=== PATIENT | male | born 1985 | race Caucasian/White ===

== ENCOUNTER 2020-01-18 11:25 | Emergency (ER) | payer OTHER ==
[~2020-01-18] VITALS: Ht 167.6 cm; Wt 86.2 kg
--- OUTSIDE RECORDS SUMMARY | ~2020-01-18 | XMS | Encounter Summary ---
Demographics + + + | Address | [address] | | | [place] [address] | + + + | Home Phone | | + + + | Preferred Language | Unknown | + + + | Marital Status | Single | + + + | Yarsani Affiliation | CHR | + + + | Race | White | + + + | Ethnic Group | Not or | + + + Author + + + | Author | [facility] | + + + | Organization | [facility] | + + + | Address | Unknown | + + + | Phone | Unavailable | + + + Support + + +---------+ + | Name | Relationship | Address | Phone | + + +---------+ + | Rosa Ybarra | ECON | Unknown | | + + +---------+ + | Lexy Grimm | ECON | Unknown | | + + +---------+ + Care Team Providers + +------+ + | Care Assistant Professor Of Biochemistry Name | Role | Phone | + +------+ + PCP | Unavailable | + +------+ + Encounter Details +--------+ + + + + | Date | Type | Department | Care Team | Description | +--------+ + + + + | 09/26/ | Abstract | Neurology at | Kenneth Ruiz MD | | | 2012 | | [facility] & | | | | | | Healing [address] | | | | | | [facility] [place] [facility] | | | | | | Health and Healing, | | | | | | Building | | | | | | Floor [place], [place] | | | | | | [address] | | | | | | [phone] | | | +--------+ + + + + Social History + +-------+ +--------+------+ | Tobacco Use | Types | Packs/Day | Years | Date | | | | | Used | | + +-------+ +--------+------+ | Never Assessed | | | | | + +-------+ +--------+------+ + + + | Sex Assigned at | Date Recorded | | | | + + + | Not on file | | + + + documented as of this encounter Plan of Treatment Not on filedocumented as of this encounter Visit Diagnoses Not on filedocumented in this encounter"
--- OUTSIDE RECORDS SUMMARY | ~2020-01-18 | XMS | Encounter Summary ---
Demographics + + + | Address | [address] | | | [place] [address] | + + + | Home Phone | | + + + | Preferred Language | Unknown | + + + | Marital Status | Single | + + + | Jainism Affiliation | CHR | + + + | Race | White | + + + | Ethnic Group | Not or | + + + Author + + + | Author | [facility] | + + + | Organization | [facility] | + + + | Address [...] Team Providers + +------+ + | Care Air Conditioning Mechanic Name | Role | Phone | + +------+ + | Collin Rivera NP | PCP | | + +------+ + Encounter Details +--------+ + + + + | Date | Type | Department | Care Team | Description | +--------+ + + + + | 10/12/ | Document-Sc | UNKNOWN DEPARTMENT | Unknown . | | | 2015 | anned | [address] | | | | | | [address] | | | | | | [place], [place] | | | | | | [address] | | | +--------+ + + + [...] Not on filedocumented as of this encounter Procedures + +--------+ + + + | Procedure Name | Priori | Date/Time | Associated Diagnosis | Comments | | | ty | | | | + +--------+ + + + | RADIOLOGY | | 10/12/2014 | | Results for this | | | | 12:00 AM | | procedure are in the | | | | PDT | | results section. | + +--------+ + + + documented in this encounter Results RADIOLOGY (10/12/2014 12:00 AM PDT) + + + | Narrative | Performed At | + + + | | | + + + documented in this encounter Visit Diagnoses Not on filedocumented in this encounter"
--- OUTSIDE RECORDS SUMMARY | ~2020-01-18 | XMS | Encounter Summary ---
Demographics + + + | Address | [address] | | | [place] [address] | + + + | Home Phone | | + + + | Preferred Language | Unknown | + + + | Marital Status | Single | + + + | Samaritan Affiliation | CHR | + + + | Race | White | + + + | Ethnic Group | Not or | + + + Author + + + | Author | [facility] | + + + | Organization | [facility] | + + + | Address [...] Team Providers + +------+ + | Care Discharge Specialist Name | Role | Phone | + +------+ + | Collin Rivera NP | PCP | | + +------+ + Encounter Details +--------+ + + + + | Date | Type | Department | Care Team | Description | +--------+ + + + + | 09/04/ | Abstract | Neurology at | Clinic, Neurology | | | 2014 | | [facility] & | | | | | | Healing [address] | | | | | | [facility] [place] [facility] | | | | | | Health and Healing, | | | | | | Building | | | | | | Floor [place], [place] | | | | | | [address] | | | | | | [phone] | | | +--------+ + + + [...]
--- OUTSIDE RECORDS SUMMARY | ~2020-01-18 | XMS | Encounter Summary ---
Demographics + + + | Address | [address] | | | [place] [address] | + + + | Home Phone | | + + + | Preferred Language | Unknown | + + + | Marital Status | Single | + + + | Restorationist Affiliation | CHR | + + + | Race | White | + + + | Ethnic Group | Not or | + + + Author + + + | Author | [facility] | + + + | Organization | [facility] | + + + | Address | [...] Team Providers + +------+ + | Care Fagoting Machine Operator Name | Role | Phone | + [...] [address] | | | | | | [place], [place] | | | | | | [address] | | | +--------+ + + + [...]
--- OUTSIDE RECORDS SUMMARY | ~2020-01-18 | XMS | Encounter Summary ---
Demographics + + + | Address | [address] | | | [place] [address] | + + + | Home Phone | | + + + | Preferred Language | Unknown | + + + | Marital Status | Single | + + + | Episcopal Affiliation | CHR | + + + | Race | White | + + + | Ethnic Group | Not or | + + + Author + + + | Author | [facility] | + + + | Organization | [facility] | + + + | Address [...] Team Providers + +------+ + | Care Match Marker Name | Role | Phone | + +------+ + | Collin Rivera NP | PCP | | + +------+ + Reason for Visit + +--------+ + | Reason | Onset | Comments | | | Date | | + +--------+ + | Headache | 12/31/ | | | | 2014 | | + +--------+ + Encounter Details +--------+ + + + + | Date | Type | Department | Care Team | Description | +--------+ + + + + | 12/31/ | Telephone | [facility] | Marlo Ruiz MD | Headache | | 2015 | | Interventional | [address] | | | | | [place] [facility] | [address] Vel[address] [place], | | | | | [address] | [place] [address] | | | | | [address] [facility] | [phone] | | | | | [facility], | | | | | | [place] [address] | | | | | | [phone] | | | +--------+ + + + [...] + + documented as of this encounter Miscellaneous Notes Telephone Encounter - Marlo Ruiz MD - 12/31/2014 12:11 PM PDTCalled PCP Collin Rivera NP concerning referral for brain atrophy and Headaches. I also discussed the biopsy results. The patient has seen Maurice Cotton a ENT surgeon. I have forwarded the referral to Dr Tobin Schneider and he will follow-up with him. documented in this encounter Plan of Treatment Not on filedocumented as of this encounter Visit Diagnoses Not on filedocumented in this encounter"
--- OUTSIDE RECORDS SUMMARY | ~2020-01-18 | XMS | Encounter Summary ---
Demographics + + + | Address | [address] | | | [place] [address] | + + + | Home Phone | | + + + | Preferred Language | Unknown | + + + | Marital Status | Single | + + + | Bahai Affiliation | CHR | + + + | Race | White | + + + | Ethnic Group | Not or | + + + Author + + + | Author | [facility] [facility] | + + + | Organization | [facility] | + + + | Address | [...] Team Providers + +------+ + | Care Publicity Writer Name | Role | Phone | + +------+ + | Collin Rivera NP | PCP | | + +------+ + Encounter Details +--------+ + + + + | Date | Type | Department | Care Team | Description | +--------+ + + + + | 12/08/ | Document-Sc | UNKNOWN DEPARTMENT | Unknown . | | | 2015 | anned | [address] | | | | | | [address] | | | | | | [place], [place] | | | | | | [address] | | | +--------+ + + + [...]
--- OUTSIDE RECORDS SUMMARY | ~2020-01-18 | XMS | Encounter Summary ---
Demographics + + + | Address | [address] | | | [place] [address] | + + + | Home Phone | | + + + | Preferred Language | Unknown | + + + | Marital Status | Single | + + + | Taoist Affiliation | CHR | + + + | Race | White | + + + | Ethnic Group | Not or | + + + Author + + + | Author | [facility] | + + + | Organization | [facility] | + + + | Address [...] Team Providers + +------+ + | Care Lactation Consultant Name | Role | Phone | + +------+ + | Collin Rivera NP | PCP | | + +------+ + Encounter Details +--------+ + + + + | Date | Type | Department | Care Team | Description | +--------+ + + + + | 02/15/ | Document-Sc | UNKNOWN DEPARTMENT | Unknown . | | | 2013 | anned | [address] | | | | | | [address] | | | | | | [place], [place] | | | | | | [address] | | | +--------+ + + + [...] + + + | RADIOLOGY | | 02/15/2014 | | Results for this | | | | 12:00 AM | | procedure are in the | | | | PDT | | results section. | + +--------+ + + + documented in this encounter Results RADIOLOGY (02/15/2014 12:00 AM PDT) + + + | Narrative | Performed At | + + + | | | + + + documented in this encounter Visit Diagnoses Not on filedocumented in this encounter"
--- OUTSIDE RECORDS SUMMARY | ~2020-01-18 | XMS | Encounter Summary ---
Demographics + + + | Address | [address] | | | [place] [address] | + + + | Home Phone | | + + + | Preferred Language | Unknown | + + + | Marital Status | Single | + + + | Scientologist Affiliation | CHR | + + + | Race | White | + + + | Ethnic Group | Not or | + + + Author + + + | Author | [facility] | + + + | Organization | [facility] | + + + | Address [...] Team Providers + +------+ + | Care Internet Sales Director Name | Role | Phone | + +------+ + | Collin Rivera NP | PCP | | + +------+ + Encounter Details +--------+ + + + + | Date | Type | Department | Care Team | Description | +--------+ + + + + | 08/26/ | Document-Sc | UNKNOWN DEPARTMENT | Unknown . | | | 2015 | anned | [address] | | | | | | [address] | | | | | | [place], [place] | | | | | | [address] | | | +--------+ + + + [...] + + + | RADIOLOGY | | 08/26/2014 | | Results for this | | | | 12:00 AM | | procedure are in the | | | | PDT | | results section. | + +--------+ + + + documented in this encounter Results RADIOLOGY (08/26/2014 12:00 AM PDT) + + + | Narrative | Performed At | + + + | | | + + + documented in this encounter Visit Diagnoses Not on filedocumented in this encounter"
--- OUTSIDE RECORDS SUMMARY | ~2020-01-18 | XMS | Encounter Summary ---
Demographics + + + | Address | [address] | | | [place] [address] | + + + | Home Phone | | + + + | Preferred Language | Unknown | + + + | Marital Status | Single | + + + | Hinduism Affiliation | CHR | + + + | Race | White | + + + | Ethnic Group | Not or | + + + Author + + + | Author | [facility] [facility] | + + + | Organization | [facility] | + + + | Address | [...] Team Providers + +------+ + | Care Operations And Maintenance Supervisor Name | Role | Phone | + +------+ + | Collin Rivera NP | PCP | | + +------+ + Encounter Details +--------+ + + + + | Date | Type | Department | Care Team | Description | +--------+ + + + + | 11/09/ | Document-Sc | UNKNOWN DEPARTMENT | Unknown . | | | 2016 | anned | [address] | | | | | | [address] | | | | | | [place], [place] | | | | | | [address] | | | +--------+ + + + [...] + + + | RADIOLOGY | | 11/10/2015 | | Results for this | | | | 12:00 AM | | procedure are in the | | | | PDT | | results section. | + +--------+ + + + documented in this encounter Results RADIOLOGY (11/10/2015 12:00 AM PDT) + + + | Narrative | Performed At | + + + | | | + + + documented in this encounter Visit Diagnoses Not on filedocumented in this encounter"
--- OUTSIDE RECORDS SUMMARY | ~2020-01-18 | XMS | Encounter Summary ---
Demographics + + + | Address | [address] | | | [place] [address] | + + + | Home Phone | | + + + | Preferred Language | Unknown | + + + | Marital Status | Single | + + + | Sabianism Affiliation | CHR | + + + | Race | White | + + + | Ethnic Group | Not or | + + + Author + + + | Author | [facility] | + + + | Organization | [facility] | + + + | Address | [...] Team Providers + +------+ + | Care Associate Professor Of Biology Name | Role | Phone | + +------+ + | Collin Rivera NP | PCP | | + +------+ + Reason for Visit AUTH/CERT +--------+--------+ + + + + | Status | Reason | Specialty | Diagnoses / | Referred By | Referred To | | | | | Procedures | Contact | Contact | +--------+--------+ + + + + | Closed | | | | | | +--------+--------+ + + + + Encounter Details +--------+ + + + + | Date | Type | Department | Care Team | Description | +--------+ + + + + | 12/23/ | Hospital | [address] | Marlo Ching MD | | | 2014 | Encounter | [facility] | [address] | | | | | [address] [place] [address] | Ivon Velázquez [place], | | | | | [place], [place] | [place] [address] | | | | | [address] | [phone] | | | | | [phone] | | | +--------+ + + + [...] + + documented as of this encounter Last Filed Vital Signs + + + + + | Vital Sign | Reading | Time Taken | Comments | + + + + + | Blood Pressure | 127/82 | 12/23/2014 2:15 PM | | | | | PDT | | + + + + + | Pulse | 101 | 12/23/2014 2:15 PM | | | | | PDT | | + + + + + | Temperature | 36.8 C (98.2 F) | 12/23/2014 10:22 AM | | | | | PDT | | + + + + + | Respiratory Rate | 19 | 12/23/2014 2:15 PM | | | | | PDT | | + + + + + | Oxygen Saturation | 96% | 12/23/2014 2:15 PM | | | | | PDT | | + + + + + | Inhaled Oxygen | - | - | | | Concentration | | | | + + + + + | Weight | 74.8 kg (165 lb) | 12/23/2014 10:22 AM | | | | | PDT | | + + + + + | Height | 170.2 cm (5' 7") | 12/23/2014 10:22 AM | | | | | PDT | | + + + + + | Body Mass Index | 25.84 | 12/23/2014 10:22 AM | | | | | PDT | | + + + + + documented in this encounter Discharge Instructions Instructions Arlene Arvizu RN - 12/23/2014[facility] Follow the guidelines below. Call your doctor if you notice any unusual symptoms. Remember you are under the influence of drugs. Do not drive, drink alcoholic beverages, sign legal do cuments or make major decisions during the next 24 hours. Wound Care: -Keep wound dry and clean Dressings: -Keep the dressing on your wound dry -You may remove the dressing in 1 day. - Change the dressing as needed for any oozing. Call Your Doctor If If you see any of these signs, call your doctor right away. -Increase redness -Pus -Swelling -Red streaks -Hardness or firmness -Foul odor -Fever above 101 F -Tenderness -Increased bleeding -Increased pain not relieved by medicine Diet and Medicines: Eat your normal diet and take your usual medicines unless told otherwise by your doctor. How to Reach your Doctor Monday 8:00 4:00 call Neuro Interventional Radiology at . For Interventional Radiology related emergencies after hours, weekends, and holidays, call the Hospital Distributor Operator at and ask to have the Neuro Radiology Fellow onlinda thompson. If you are going to the [facility] Emergency Room, call to let them know you are neeraj dc. documented in this encounter Medications at Time of Discharge + + + +---------+ + + | Medication | Sig | Dispensed | Refills | Start | End Date | | | | | | Date | | + + + +---------+ + + | citalopram 10 mg | Take 10 mg by mouth | | 0 | | | | Oral tablet | once daily. | | | | | + + + +---------+ + + | gabapentin 300 mg | Take 300 mg by mouth | | 0 | | | | oral capsule | three times daily. | | | | | + + + +---------+ + + | | Take 1-2 tablets by | 5 | 0 | 12/24/19 | | | HYDROcodone-acetamin | mouth every four | tablet | | 15 | | | ophen (NORCO) 5-325 | hours as needed. Not | | | | | | mg oral tablet | to exceed 3250 mg | | | | | | | of acetaminophen | | | | | | | from all products | | | | | | | per 24 hour period. | | | | | + + + +---------+ + + | omeprazole 40 mg | Take 1 Cap by mouth | 30 Cap | 0 | 10/01/19 | | | Oral capsule,delayed | once daily. | | | 13 | | | release(/EC) | | | | | | + + + +---------+ + + | promethazine 12.5 | Take 12.5 mg by | | 0 | | | | mg oral tablet | mouth four times | | | | | | | daily as needed for | | | | | | | nausea/vomiting. | | | | | + + + +---------+ + + | SUMAtriptan 25 mg | Take 25 mg by mouth | | 0 | | | | Oral tablet | as needed. | | | | | | | Administer with | | | | | | | fluids. A second | | | | | | | dose may be | | | | | | | administered in 2 | | | | | | | hours if a | | | | | | | satisfactory | | | | | | | response has not | | | | | | | been obtained. Max | | | | | | | dose: 200 mg/day. 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 Past Medical History Diagnosis Date Depressive disorder, not elsewhere classified No past surgical history on file. No Known Allergies Current Medication List Name Sig CITALOPRAM 10 MG TABLET Take 10 mg by mouth once daily. GABAPENTIN 300 MG CAPSULE Take 300 mg by mouth three times daily. OMEPRAZOLE 40 MG CAPSULE,DELAYED RELEASE Take 1 Cap by mouth once daily. PROMETHAZINE 12.5 MG TABLET Take 12.5 mg by mouth four times daily as needed for nausea/vom iting. SUMATRIPTAN 25 MG TABLET Take 25 mg by mouth as needed. Administer with fluids. A second do se may be administered in 2 hours if a satisfactory response has not been obtained. Max dos e: 200 mg/day. TAKING COUMADIN OR GLUCOPHAGE? No TAKING ASPIRIN AND PLAVIX ADEQUATE FOR INTERVENTION? No Lab Results Component Value Date NA 139 09/29/2012 K 3.4* 09/29/2012 CL 97.0 09/29/2012 BUN 24* 09/29/2012 CR 1.1 09/29/2012 GLU 112* 09/29/2012 Lab Results Component Value Date WBC 9.4 09/29/2012 HCT 46 09/29/2012 PLT 282 09/29/2012 No components found with this basename: inr FOCUSED PHYSICAL EXAMINATION: Alert and oriented, normal mentation, normal speech. Slight weakness of RUE and RLE (4+/5) likely due to migraine. Mild difficulty in the right fine finger movements due to pain, mild ly impaired visual card due to blurred vision, likely due to migraine. ASA SCORE: 2 1. Otherwise Healthy Person 2. Mild systemic disturbance due to general disease or surgical illness 3. Moderate systemic disturbance due to general disease or surgical illness 4. Severe systemic illness; incapacitating threat to life 5. Moribund; not expected to survive >24 hours with or without surgery PLANNED ACCESS POINT: RIGHT COMMON FEMORAL ARTERY CURRENT LEVEL OF PAIN: MODERATE PLANNED LEVEL OF SEDATION: MODERATE PRESENT P.O. STATUS: CLEAR LIQUID DIET The risk of biopsy were explained to patient or patient's surrogate in detail, including ri sks, benefits, alternatives, and indications. All questions were answered in detail. The pat ient or the patient's surrogate directs us to proceed. Consent was signed and placed in shivam t. documented in thi s encounter Procedure Notes Jay Carolina MD - 12/23/2014 12:37 PM PDTAssociated Order(s): PROCEDURE NOTEFormatti ng of this note might be different from the original. INTERVENTIONAL NEURORADIOLOGY Brief Procedure Note Attending Physician: Marlo Ching MD Assistants: 1. Jay Carolina MD Procedure Performed: X-per CT guided left parapharyngeal tumor biopsy Complications: None apparent except persistent migraine related symptoms. Findings: Successful X-per CT guided left parapharyngeal tumor biopsy. Specimen was put i nto 10% formalin and sent to pathology. Closure: 2 hrs observation MD JAY Baltazar MD documented in this encounter Miscellaneous Notes Scan - Marlo Ching MD - 12/23/2014 5:52 PM PDTI had seen Mac Ybarra in the [facility] for evaluation of his left deep facial mass. I was asked to consult this patient by Dr. Alvaro Saavedra and Collin Rivera N.P. This patient is a 28-year-old male with history of migraines and neck pain MRI and a CT scan which demonstrates a left deep facial mass. I reviewed the scans may demo nstrate an enhancing mass which appears stable in size between the 2 studies involving the p restyloid parapharyngeal space. Given its location I feel that I could obtain a needle biops y via the stylomandibular canal approach and he underwent CT guidance for this today. The ne edle placement was confirmed to be within the lesion. We were able to obtain a 1 cm core that was placed in formalin and sent to the surgical pat hologist for analysis. Patient had modest neck pain in the region of the biopsy site was otherwise doing fine and was discharged. I have spent a total of 20 minutes in this consult concerning the potential CT biopsy and expected results and coordination of care. MARLO CHING MD [facility] [address] [facility] [address] [place], [place] [id number] documented in this encou nter Plan of Treatment + +------+--------+ + + | Name | Type | Priori | Associated Diagnoses | Order Schedule | | | | ty | | | + +------+--------+ + + | SURGICAL PATHOLOGY | Lab | Routin | | Collect Now for 1 | | | | e | | Occurrences starting | | | | | | 12/23/2014 until | | | | | | 12/23/2014 | + +------+--------+ + + documented as of this encounter Procedures + +--------+ + + + | Procedure Name | Priori | Date/Time | Associated Diagnosis | Comments | | | ty | | | | + +--------+ + + + | PROCEDURE NOTE | Routin | 07/02/2015 | | Results for this | | | e | 1:13 PM | | procedure are in the | | | | PST | | results section. | + +--------+ + + + | PROCEDURE NOTE | Routin | 07/02/2015 | | Results for this | | | e | 1:10 PM | | procedure are in the | | | | PST | | results section. | + +--------+ + + + | CEREBRAL 3 VESSELS | Routin | 12/23/2014 | | Results for this | | | e | 12:15 PM | | procedure are in the | | | | PDT | | results section. | + +--------+ + + + | SURGICAL PATHOLOGY | Routin | 12/23/2014 | | Results for this | | | e | | | procedure are in the | | | | | | results section. 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 [id number] | | | | | | 1-cm throw core biopsy | | | | | | needle was advanced | | | | | | into this lesion. CT | | | | | | scan following firing of | | | | | | the needle demonstrated | | | | | | the needle to lie in | | | | | | thesuperior mid aspect | | | | | | of the mass. A 10 | | | | | | millimeter core was | | | | | | obtained and placedin | | | | | | formalin to be sent to | | | | | | surgical pathology for | | | | | | analysis. The | | | | | | patienttolerated | | | | | | procedure well no | | | | | | apparent palpitations | | | | | | Impression: CT guided | | | | | | percutaneous puncture | | | | | | and core biopsy was | | | | | | performed withCT | | | | | | confirmation of needle | | | | | | location within the | | | | | | mass. Operative report: | | | | | | Surgeon: Marlo Ching, | | | | | | M.D. Returns Clerk surgeon: | | | | | | Jay Carolina, | | | | | | M.D. Anesthesia: | | | | | | Conscious sedation was | | | | | | maintained throughout | | | | | | the procedure withthe | | | | | | monitoring nurse | | | | | | present. Duration of | | | | | | procedure: Began at | | | | | | 1130 , terminated at | | | | | | 1215 , fluoro time | | | | | | 3.3minutes. Operation | | | | | | No. 1: CT guidance of | | | | | | 18-gauge 1-cm throw | | | | | | core biopsy needle | | | | | | intothe left | | | | | | parapharyngeal | | | | | | massOperation No. 2: | | | | | | biopsy left base of | | | | | | tongue mass Description | | | | | | of procedure: The | | | | | | patient was taken to the | | | | | | neuroangiography suite | | | | | | and ankit supine on | | | | | | thetable. Using Xper | | | | | | CT and Xper guide a | | | | | | 18-gauge 1-cm throw core | | | | | | biopsy needle,a 10mm | | | | | | core biopsy specimen was | | | | | | obtained as described | | | | | | above. Dr Ching | | | | | | waspresent and | | | | | | participated in the | | | | | | procedure as listed | | | | | | above. Suggested CPT | | | | | | codes: 43135i7, 52890q0 | | | | | | Attending | | | | | | Radiologists: MARLO | | | | | | STEFANIE CHINGuthor: MARLO | | | | | | MD JEANE I have | | | | | | personally viewed this | | | | | | procedure/exam, reviewed | | | | | | this report, and | | | | | | madechanges to it where | | | | | | appropriate. | | | | | | Final/Electronically | | | | | | signed / MARLO CHING | | | | | | 12/23/2014 18:26 PM | | | | + + + + + + + + | Specimen | + + | | + + + +---------+ + + | Performing | Address | City/State/Zipcode | Phone Number | | Organization | | | | + +---------+ + + | [place] [facility] | | | | | RADIOLOGY | | | | + +---------+ + + SURGICAL PATHOLOGY (12/23/2014) + + + + + + | Component | Value | Ref Range | Performed | Pathologist | | | | | At | Signature | + + + + + + | SURGICAL | SOURCE OF SPECIMEN:A | | [facility] | | | PATHOLOGY | Left parapharyngeal mass | | DEPARTMENT | | | | Final Pathologic | | OF | | | | Diagnosis:A: Left | | PATHOLOGY | | | | parapharyngeal mass, | | | | | | biopsy: - 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 | | | | | | This fragment doesnot | | | | | | contain cytologic atypia | | | | | | however it is only a | | | | | | small representation | | | | | | ofthe lesion. Clinical | | | | | | correlation is required | | | | | | Case Seen | | | | | | By:Sawyer Russell | | | | | | M.D./Surgical pathology | | | | | | Richard Nevarez | | | | | | M.DDarren/PathologistT: | | | | | | 12/24/14:SB | | | | | | Clinical History:The | | | | | | patient is a 28-year-old | | | | | | male with left | | | | | | parapharyngeal mass, CT | | | | | | guidedbiopsy. | | | | | | Gross | | | | | | Description:Received is | | | | | | 1 specimen in formalin | | | | | | in a container labeled | | | | | | with the patientname | | | | | | (initials MH) and | | | | | | medical record number | | | | | | [id number]. Received is | | | | | | agray-white core of soft | | | | | | tissue measuring 0.6 cm | | | | | | in length x less than | | | | | | 0.1cm in diameter. Two | | | | | | additional hugo-white | | | | | | fragments of soft tissue | | | | | | eachmeasuring less than | | | | | | 0.1 cm in greatest | | | | | | dimension are also | | | | | | noted. Theentire | | | | | | specimen is filtered and | | | | | | submitted. | | | | | | Cassette Index:[id number] | | | | | | My electronic | | | | | | signature indicates that | | | | | | I have personally | | | | | | reviewed alldiagnostic | | | | | | slides, the gross and/or | | | | | | microscopic portion of | | | | | | thisreport and | | | | | | formulated the final | | | | | | diagnosis. | | | | | | Rendering Diagnostician: | | | | | | Aaron Nevarez | | | | | | NolbertoPathologistElectroni | | | | | | july Signed 2014 | | | | | | 11:45AM | | | | + + + + + + + + | Specimen | + + | | + + + + + + + | Performing | Address | City/State/Zipcode | Phone Number | | Organization | | | | + + + + + | [facility] | [address] | [place] [address] | | | PATHOLOGY | [address] | | | + + + + + documented in this encounter Visit Diagnoses Not on filedocumented in this encounter Administered Medications + +---------+ +--------+------+------+ | Medication Order | MAR | Action | Dose | Rate | Site | | | Action | Date | | | | + +---------+ +--------+------+------+ | fentaNYL citrate (PF) | Miki Cornejo | 12/24/19 | 25 mcg | | | | (SUBLIMAZE) injection 25-100 mcg | | 15 12:01 | | | | | 25-100 mcg, intravenous, | | PM PDT | | | | | INTRAPROCEDURE PRN, Starting Tue | | | | | | | 12/23/14 at 1007, Until Tue | | | | | | | 12/23/14 at 1225, sedation | | | | | | + +---------+ +--------+------+------+ +---------+ +--------+---+---+ | New Bag | 12/24/19 | 25 mcg | | | | | 15 11:47 | | | | | | AM PDT | | | | +---------+ +--------+---+---+ | New Bag | 12/24/19 | 50 mcg | | | | | 15 11:38 | | | | | | AM PDT | | | | +---------+ +--------+---+---+ +---+---+ | | | +---+---+ + +---------+ +--------+---+---+ | fentaNYL citrate (PF) | New Bag | 12/24/19 | 50 mcg | | | | (SUBLIMAZE) injection 25-50 mcg | | 15 1:13 | | | | | 25-50 mcg, intravenous, | | PM PDT | | | | | POSTPROCEDURE PRN, Starting Tu | | | | | | | 12/23/14 at 1237, Until Mon | | | | | | | 12/23/14 at 2025, moderate pain, | | | | | | | severe pain | | | | | | + +---------+ +--------+---+---+ + +---+ | | | + +---+ | fentaNYL citrate (PF) | | | (SUBLIMAZE) injection 1 dose, | | | Starting Mon12/23/14 at 1308, | | | Until Mon12/23/14 at 1313 | | + +---+ | | | + +---+ + +-------+ + +---+---+ | HYDROcodone-acetaminophen | Given | 12/24/19 | 1 tablet | | | | (NORCO) 5-325 mg tablet 1 tablet | | 15 2:03 | | | | | 1 tablet, oral, ONCE, 1 dose, | | PM PDT | | | | | 12/23/14 at 1400 | | | | | | + +-------+ + +---+---+ + +---+ | | | + +---+ | HYDROcodone-acetaminophen | | | (NORCO) 5-325 mg tablet 1 dose, | | | Starting 12/23/14 at 1401, | | | Until 12/23/14 at 1403 | | + +---+ | | | + +---+ + +---------+ +------+---+---+ | midazolam (VERSED) injection | New Bag | 12/24/19 | 1 mg | | | | 0.25-2 mg 0.25-2 mg, | | 15 11:38 | | | | | intravenous, INTRAPROCEDURE PRN, | | AM PDT | | | | | Starting 12/23/14 at 1007, | | | | | | | Until 12/23/14 at 1225, | | | | | | | sedation | | | | | | + +---------+ +------+---+---+ +---+---+ | | | +---+---+ documented in this encounter
--- OUTSIDE RECORDS SUMMARY | ~2020-01-18 | XMS | Encounter Summary ---
Demographics + + + | Address | [address] | | | [place] [address] | + + + | Home Phone | | + + + | Preferred Language | Unknown | + + + | Marital Status | Single | + + + | Taoism Affiliation | CHR | + + + | Race | White | + + + | Ethnic Group | Not or | + + + Author + + + | Author | [facility] | + + + | Organization | [facility] | + + + | [...] Team Providers + +------+ + | Care Automotive Internet Sales Consultant Name | Role | Phone | + +------+ + | Collin Rivera NP | PCP | | + +------+ + Encounter Details +--------+ + + + + | Date | Type | Department | Care Team | Description | +--------+ + + + + | 11/26/ | Document-Sc | UNKNOWN DEPARTMENT | Unknown . | | | 2016 | anned | [address] | | | | | | [address] | | | | | | [place], [place] | | | | | | [address] | | | +--------+ + + + [...] + + + | RADIOLOGY | | 11/27/2015 | | Results for this | | | | 12:00 AM | | procedure are in the | | | | PDT | | results section. | + +--------+ + + + documented in this encounter Results RADIOLOGY (11/27/2015 12:00 AM PDT) + + + | Narrative | Performed At | + + + | | | + + + documented in this encounter Visit Diagnoses Not on filedocumented in this encounter"
--- OUTSIDE RECORDS SUMMARY | ~2020-01-18 | XMS | Encounter Summary ---
Demographics + + + | Address | [address] | | | [place] [address] | + + + | Home Phone | | + + + | Preferred Language | Unknown | + + + | Marital Status | Single | + + + | Hindu Affiliation | CHR | + + + | Race | White | + + + | Ethnic Group | Not or | + + + Author + + + | Author | [facility] | + + + | Organization | [facility] | + + + | Address [...] Team Providers + +------+ + | Care Plumber And Tinner Name | Role | Phone | + +------+ + | Collin Rivera NP | PCP | | + +------+ + Encounter Details +--------+ + + + + | Date | Type | Department | Care Team | Description | +--------+ + + + + | 04/13/ | Abstract | Otolaryngology | Alvaro Saavedra, | | | 2015 | | Head and Neck | [address] [facility] | | | | | Surgery Services at | [facility] | | | | | [address] | [place], [place] | | | | | [address] | [address] | | | | | Physician's | [phone] | | | | | Pavilion, [facility] [facility] floor | | | | | | [place], [place] | | | | | | [address] | | | | | | [phone] | | | +--------+ + + + [...]
--- OUTSIDE RECORDS SUMMARY | ~2020-01-18 | XMS | Encounter Summary ---
Demographics + + + | Address | [address] | | | [place] [address] | + + + | Home Phone | | + + + | Preferred Language | Unknown | + + + | Marital Status | Single | + + + | Yazdanism Affiliation | CHR | + + + | Race | White | + + + | Ethnic Group | Not or | + + + Author + + + | Author | [facility] | + + + | Organization | [facility] | + + + | Address [...] Team Providers + +------+ + | Care High Pressure Boiler Operator Name | Role | Phone | + +------+ + | Collin Rivera NP | PCP | | + +------+ + Encounter Details +--------+ + + + + | Date | Type | Department | Care Team | Description | +--------+ + + + + | 09/05/ | Outside | Neurophysiology | Collin Rivera, | | | 2015 | Referral | EEG at [address] | | | | Order | [address] | [facility] | | | | | [facility] | CLINIC [address] | | | | | Center, [address] Floor | [place], [place] | | | | | [place], [place] | [address] | | | | | [address] | | | | | | [phone] | | | +--------+ + + + [...] | + +--------+ + + + | EEG ROUTINE | Routin | 09/05/2014 | | Results for this | | | e | | | procedure are in the | | | | | | results section. | + +--------+ + + + documented in this encounter Results EEG ROUTINE (09/05/2014) + + + | Narrative | Performed At | + + + | Patient Name: Mac Ybarra Date of : 1985 Medical | | | Record Number: [id number] Date of Test: 09/05/2014 Place of | | | Service: [facility] Department: EEG [facility] - [id number] ROUTINE | | | EEG History: 28 year old man with reported history of headaches | | | with nausea, vomiting, visual change. Notes also indicate "personal | | | history of seizures" Current Outpatient Prescriptions: citalopram | | | 10 mg Oral tablet, Take 10 mg by mouth once daily. omeprazole 40 mg | | | Oral capsule,delayed release(DR/EC), Take 1 Cap by mouth once daily. | | | SUMAtriptan 25 mg Oral tablet, Take 25 mg by mouth as needed. | | | Administer with fluids. A second dose may be administered in 2 hours | | | if a satisfactory response has not been obtained. Max dose: 200 | | | mg/day. No current facility-administered medications for this | | | visit. Interpretation: In the maximally alert state, there is a | | | reactive 9-10 Hz posterior dominant rhythm of low moderate amplitude, | | | poorly formed at times, with lower amplitude faster frequencies | | | present symmetrically in the anterior head regions. The patient | | | entered into the drowsy state, stage I, but not stage II of sleep, | | | with normal presence and distribution of sleep transients. No focal | | | slowing or epileptiform discharges were present. Hyperventilation | | | was performed for 3 minutes with diffuse slowing but no abnormal | | | responses. Photic stimulation produced no photoparoxysmal | | | discharges or other abnormal responses. Intermittent electrode | | | artifact was noted at multiple locations, including F7, T6, T5, T4, | | | O1, and most prominently at F3. EKG showed normal sinus rhythm | | | throughout the recording. Impression: This is a normal EEG awake | | | and in light sleep. Electronically signed on 09/05/2014 at 5:30 PM | | | CAMILO VILLAGOMEZ MD. Suggested Modifier: None Suggested CPT: 85586 - | | | EEG Routine Awake & Asleep Suggested Dx: 345.90- Epilepsy, | | | Unspecified | | + + + documented in this encounter Visit Diagnoses Not on filedocumented in this encounter
--- OUTSIDE RECORDS SUMMARY | ~2020-01-18 | XMS | Encounter Summary ---
Demographics + + + | Address | [address] | | | [place] [address] | + + + | Home Phone | | + + + | Preferred Language | Unknown | + + + | Marital Status | Single | + + + | Episcopalian Affiliation | CHR | + + + | Race | White | + + + | Ethnic Group | Not or | + + + Author + + + | Author | [facility] | + + + | Organization | [facility] | + + + | Address | [...] Team Providers + +------+ + | Care Zoning Administrator Name | Role | Phone | + [...] [address] | | | | | | [place], [place] | | | | | | [address] | | | +--------+ + + + [...]
--- OUTSIDE RECORDS SUMMARY | ~2020-01-18 | XMS | Encounter Summary ---
Demographics + + + | Address | [address] | | | [place] [address] | + + + | Home Phone | | + + + | Preferred Language | Unknown | + + + | Marital Status | Single | + + + | Rastafarian Affiliation | CHR | + + + | Race | White | + + + | Ethnic Group | Not or | + + + Author + + + | Author | [facility] | + + + | Organization | [facility] | + + + | Address | Unknown | + + + | Phone | Unavailable | + + + Support + + +---------+ + | Name | Relationship | Address | Phone | + + +---------+ + | Rosa Kaur | ECON | Unknown | | + + +---------+ + | Lexy Grimm | ECON | Unknown | | + + +---------+ + Care Team Providers + +------+ + | Care Landscape Foreman Name | Role | Phone | + +------+ + | Unknown | PCP | Unavailable | + +------+ + Reason for Referral Diagnostic Testing (Urgent) +--------+--------+ + + + + | Status | Reason | Specialty | Diagnoses / | Referred By | Referred To | | | | | Procedures | Contact | Contact | +--------+--------+ + + + + | Closed | | Radiology | Procedures | Jonas | Emir Ct Scan | | | | | CT ABDOMEN | John Paul Jones MD | [facility] [address] | | | | | & PELVIS W | [address] | [address] | | | | | IV CONTRAST | [address] | [place] [facility] | | | | | | Rd | [facility], | | | | | | [place], [place] | 10th Floor | | | | | | [address] | [place], [place] | | | | | | Phone: | [phone] | | | | | | [phone] | Phone: | | | | | | Fax: | [phone] | | | | | | [phone] | Fax: | | | | | | | [phone] | +--------+--------+ + + + + Diagnostic Testing (Urgent) +--------+--------+ + + + + | Status | Reason | Specialty | Diagnoses / | Referred By | Referred To | | | | | Procedures | Contact | Contact | +--------+--------+ + + + + | Closed | | Radiology | Procedures | Case, | Rad Ct Scan | | | | | CT HEAD WO | Kitty Jones MD | [facility] [address] | | | | | CONTRAST | [address] | [address] | | | | | | [place] | [place] [facility] | | | | | | [place] | [facility], | | | | | | [place], [place] | [facility] Floor | | | | | | [address] | [place], [place] | | | | | | Phone: | [phone] | | | | | | [phone] | Phone: | | | | | | Fax: | [phone] | | | | | | [phone] | Fax: | | | | | | | [phone] | +--------+--------+ + + + + Reason for Visit + + + | Reason | Comments | + + + | SZ - Seizure | | + + + AUTH/CERT +--------+--------+ + + + + | [...] | +--------+ + + + + | 09/29/ | Emergency | [facility] Emergency | Kitty Razo MD | | | 2012 - | | Department [address] | [address] | | | | | [address] | [place], | | | 09/30/ | | [facility] | [place] [address] | | | 2012 | | [place], [place] | [phone] | | | | | [address] | | | | | | [phone] | | | +--------+ + + + [...] + + + | Blood Pressure | 118/81 | 09/30/2012 12:23 AM | | | | | PDT | | + + + + + | Pulse | 70 | 09/30/2012 12:23 AM | | | | | PDT | | + + + + + | Temperature | 37 C (98.6 F) | 09/30/2012 12:23 AM | | | | | PDT | | + + + + + | Respiratory Rate | 18 | 09/30/2012 12:23 AM | | | | | PDT | | + + + + + | Oxygen Saturation | 100% | 09/30/2012 12:23 AM | | | | | PDT | | + + + + + | Inhaled Oxygen | - | - | | | Concentration | | | | + + + + + | Weight | 86.2 kg (190 lb) | 09/29/2012 3:10 PM | | | | | PDT | | + + + + + | Height | - | - | | + + + + + | Body Mass Index | - | - | | + + + + + documented in this encounter Discharge Instructions Instructions John Paul Mcdaniel MD - 09/30/2012 Thank you for allowing us to care for you here at [facility]'s Emergency Department. Please refer to the following discharge instructions related to the care you received today. - Take the omeprazole as prescribed daily. - Stop taking the Naproxen - Use acetaminophen (Tylenol) unless you have been instructed otherwise by a doctor. Please follow the instructions on the packages. You should not take more than 4g of acetaminophen in any 24 hour period and no more than 1g per dose. Keep in mind that some prescription pain medications, including Vicodin, contain acetaminophen and this must be factored into the [facility] daily allowances. - Return to the Emergency Department if you are having any, or any other symptoms of concer n. Thank you. John Paul Mcdaniel MD documented in this encounter Medications at Time [...] mouth | 30 Cap | 0 | 05/05/20 | | | Oral capsule,delayed | once daily. | | | 13 | | | release(DR/EC) | | | | | | + [...] + + documented as of this encounter Procedure Notes Jessy Sotelo - 10/02/2012 6:16 PM PDTAssociated Order(s): CARDIOLOGYElectronically jailyn d by Faculty Deepak at 10/02/2012 6:16 PM PDTdocumented in this encounter ED Notes Gwen Anders RN - 09/30/2012 12:24 AM PDTRN DISCHARGE NOTE: The patient verbalizes understanding of written discharge/home care instructions as a evide nced by Follow-up plan of care reviewed w/ patient, Pt voiced understanding of plan of care, Written dx instructions reviewed w/ patient, Extended patient education and Patient advised not to drive. The patient was discharged Ambulatory via Walking and Private Vehicle with f rolly in no emergent distress. 12:[address] RN - 09/29/2012 8:46 PM PDTPt reports that he has been having g se izures since age 13 and has never been on anticonvulsants but would like to see a neurologis t to get started on some. Pt is now walking in [place] on the cell phone telling someone that angel rider will be ready to picker and packer at 1100 pm. Pt is to be prepped for and LP. Pt reports that last seizure was last night un witnessed and reports that he knows it occurred because he "was ge tting a drink and passed out woke up on the floor with a cut on his finger". Pt reports las t seizure prior was 1 week ago and at this time his Gf witnessed him staring into space and not responding while his name was being called 7 x. Last seizure prior was months ago. Denie s drug or EToh use. Gwen Loaiza RN - 09/29/2012 8:26 PM PDTPt returned from CT asleep with even and unlabore d respirations. Sleep interrupted for assessment. Gwen Street RN - 09/29/2012 7:54 PM PDTPt asleep resting w ith even and unlabored respirations. 13 7:54 PM PDTCase, Kitty Jones MD - 09/29/2012 6:14 PM PDTFormatting of this note might be d ifferent from the original. ED Shared Provider Note, co-authored by John Paul Mcdaniel MD and KITTY RAZO MD: Epilepsy Associated symptoms include headaches, chest pain, nausea and vomiting. Pertinent negatives include no sore throat, no cough and no diarrhea. Pt presents with multiple c/o. States he has had intermittent sz for the past few years and although he has been evaluated in the past for this, he is currently trying to get an appointment to be seen at [facility] for s romana. Unable to describe events but states they occur in groups where he will have a few sei zures scattered over a several week period. Most recently he states he had a sz last PM ass ociated with his usual aura of feeling weak and flushed then waking up on the floor. States he struck his R hand at some point and currently has minor pain w/o weakness nor numbness a t that site. Also c/o severe occipital LOPEZ since earlier today. Describes rapid onset of sx and states p ain is more severe than his baseline. He admits to intermittent tingling in his lips and bl urred vision when he gets "migraines" but denies these sx w/ current presentation. Denies t rauma other than the possibility of striking his head last PM. No neck/back pain nor numbne ss, weakness nor other neuro deficit. Also c/o pain in epigastrum radiating to his chest for the past several days. States hx si milar pain previously on multiple occasions. Has been taking Celebrex and Naprosyn for his headaches recently. Pain worse w/ inspiration. No worsening w/ exertion. No PE risk facto rs other than smoking. PCP: Unknown There are no active problems to display for this patient. Past Medical History Diagnosis Date Depressive disorder, not elsewhere classified Past Surgical History Non-contrib Medications Prior to Admission Medications Medication Last Dose Informant Patient Reported? Taking? citalopram 10 mg Oral tablet 09/28/2012 Yes Yes Take 10 mg by mouth once daily. SUMAtriptan 25 mg Oral tablet 09/28/2012 Yes Yes Take 25 mg by mouth as needed. Administer with fluids. A second dose may be administered in 2 hours if a satisfactory response has not been obtained. Max dose: 200 mg/day. Allergies No Known Allergies Social History + tob Family History Non-contrib Review of Systems Constitutional: Negative for fever and chills. HENT: Negative for ear pain, congestion, sore throat, neck pain and ear discharge. Eyes: Positive for blurred vision. Negative for double vision, photophobia and pain. Respiratory: Negative for cough, shortness of breath, wheezing and stridor. Cardiovascular: Positive for chest pain. Negative for palpitations and leg swelling. Gastrointestinal: Positive for heartburn, nausea, vomiting and abdominal pain. Negative for diarrhea, constipation and blood in stool. Genitourinary: Negative for dysuria and urgency. Musculoskeletal: Negative for back pain. Skin: Negative for itching and rash. Neurological: Positive for seizures and headaches. Negative for sensory change, speech farnsworth ge and focal weakness. Endo/Heme/Allergies: Negative for polydipsia. Does not bruise/bleed easily. Psychiatric/Behavioral: Negative for hallucinations and substance abuse. ED Triage Vitals BP Temp Pulse Resp SpO2 09/29/12 1510 09/29/12 1510 09/29/12 1510 09/29/12 1510 09/29/12 1510 138/82 mmHg 36.9 C 84 16 96 % Physical Exam Nursing note and vitals reviewed. Constitutional: He is oriented to person, place, and time. He appears well-developed and we ll-nourished. No distress. HENT: Head: Normocephalic and atraumatic. Mouth/Throat: Oropharynx is clear and moist. Eyes: Conjunctivae and EOM are normal. Pupils are equal, round, and reactive to light. Neck: Normal range of motion. Neck supple. No JVD present. No tracheal deviation present. N o thyromegaly present. Cardiovascular: Normal rate, regular rhythm and normal heart sounds. Pulmonary/Chest: Effort normal and breath sounds normal. No respiratory distress. He has no wheezes. He exhibits no tenderness. Abdominal: Soft. He exhibits no distension. There is tenderness. There is no guarding. RLQ tenderness noted. Musculoskeletal: Normal range of motion. He exhibits no edema. Lymphadenopathy: He has no cervical adenopathy. Neurological: He is alert and oriented to person, place, and time. No cranial nerve deficit or sensory deficit. Coordination normal. GCS eye subscore is 4. GCS verbal subscore is 5. G CS motor subscore is 6. Decreased drip and flexion/extension of RUE however the degree of weakness is inconsis tent and varies with the amount of resistance applied. Able to walk on heels and toes witho ut difficulty. Skin: Skin is warm and dry. He is not diaphoretic. No erythema. Psychiatric: He has a normal mood and affect. His behavior is normal. Thought content santino luna ED COURSE AND MEDICAL DECISION MAKING: In summary, Mac Kaur is a 26 y.o. male with past medical history significant for depressio n who presents with reports of a seizure yesterday. Our primary and secondary assessment reveals an awake, alert patient in no acute distress. Hemodynamically stable and afebrile. Exam reveals RLQ TTP, Rt Hand TTP and decreased motor i n RUE. RUE weakness felt to be more volitional than due to true motor deficit especially in light of pt able to sign consent form w/ dominant hand w/o any difficulty. Uncertain of seizure activity reported by patient or if this RUE weakness is actually true. Considered other causes to include: Subdural hemorrhage, subarachnoid hemorrhage, AUDIO/VISUAL MANAGER tumor , meningitis, encephalitis, venous sinus thrombosis, dissection, temporal arteritis, intracr anial hypertension (psuedotumor cerebri), sinusitis or cervicalgia. We proceeded with a CT H ead which was negative. We discussed the risks and benefits of an LP and proceeded with this as documented below. Those findings were negative for infection or SAH. LOPEZ somewhat improved after treatment. Epigastric and chest pain also improved after therap y. He also had RLQ TTP which gave us concern for possible appendicitis. His labs were negative , his vitals were unremarkable and his CT scan was negative for acute abdominal pathology. A t this time, don't feel this will require further workup. Given the patient's workup, feel they are safe for discharge. The patient was given the bel ow medications for symptom control. We have discussed with the patient results of workup, indications for return and need for P CP follow up. They understand and agree with the plan. Procedure Note: Lumbar Puncture Indications: Diagnostic Procedure Details Informed consent was obtained and the consent form was signed by patientafter discussion of the risks, benefits, and alternatives to the procedure, and a timeout was performed. The p atient was positioned sitting. The landmarks were identified. Anesthesia was obtained with 5 ml of 1% Lidocaine. The area was prepped and draped in the usual sterile fashion. A 20 gauge 3" length spinal needle was inserted at the [id number]. Return was clear Spinal fluid was obtained and sent to the laboratory. A dressing was placed over the sit e. Findings Opening Pressure: not measured Closing Pressure: not measured Complications: None; patient tolerated the procedure well. Condition: stable Labs: All labs were reviewed prior to patient's disposition and notable for the following: Trop Neg Lipase neg CMP unremarkable Coags wnl CBC unremarkable Imaging: CT Head: IMPRESSION: No acute intracranial abnormality. Severe diffuse cerebellar parenchymal volume loss. US Appendix: IMPRESSION: 1. Because the appendix is not identified, this examination neither diagnoses n or excludes acute appendicitis. CT Ab/Pelvis: Neg XR R hand 3-view negative for fx or dislocation. Further Diagnostics: 12 Lead ECG Interpretation: Rhythm: SR Rate: 76 Saxon: NL QT interval: NL ST segment changes: NL Comparison to a prior ECG: No prior Consults: none ED Medication Administration from 09/29/2012 1507 to 09/30/2012 0149 Date/Time Order Dose Route Action 09/29/2012 185 acetaminophen (aka TYLENOL) tablet 650 mg 650 mg Oral Given 09/29/2012 185 aluminum-magnesium hydroxide-simethicone (aka MAALOX; MYLANTA) 200-200-20 mg/5 mL suspension 30 mL 30 mL Oral Given 09/29/20122013 iohexol (aka OMNIPAQUE) injection 150 mL 150 mL Intravenous Given/New Bag 09/29/2012 185 lactated ringers IV 1,000 mL Intravenous Given/New Bag 09/29/2012 185 lidocaine viscous (aka XYLOCAINE VISCOUS) 2 % mucosal solution 30 mL 30 mL Oral Given 09/29/2012 185 ondansetron ODT (aka ZOFRAN ODT) tablet 4 mg 4 mg Oral Given IMPRESSION: 784.0 Headache 185287 Abdominal pain 20121228 Gastritis PLAN, DISPOSITION AND FOLLOW-UP: New Prescriptions OMEPRAZOLE 40 MG ORAL CAPSULE,DELAYED RELEASE(DR/EC) Take 1 Cap by mouth once daily. Quantity: 30 Cap Kasandra Hatch, RN - 08/2012 5:57 PM PDTPt also reports 2 mo intermittent migraines with associated photophobia, blurred vision and perioral numbness/tingling; R sided weakness. Seizure last night. Pt c/o Low back pain, LOPEZ, chest pain, LUQ pain, sob, n/v starting last night. Pt with hematoma and small cut to R hand. R side weaker with poor effort. abd soft, tender to palp in all quad. P t denies drug use. obert Vargas RN - 09/29/2012 3:11 PM PDTPt reports unwitnessed sz last night, woke up on kitchen f charline, has had 4-5 sz in the past year, seen for same previously but has never seen a neurolo gist. Pt arrives a/ox4. doc umented in this encounter Miscellaneous Notes Scan - Other, Faculty - 10/13/2012 1:25 PM PDTElectronically signed by Faculty Other at 1:25 PM PDTScan - Other, Faculty - 10/02/2012 11:59 AM PDT can - Other, Faculty - 10/02/2012 11:58 AM PDTElec tronically signed by Faculty Other at 10/02/2012 11:58 AM PDTED Teaching Notes - Kitty Razo MD - 09/29/2012 9:47 PM AMANDEEP RAZO MD, Faculty Note: I saw and evaluated the patient and discussed the diagnosis and management with the reside nt. I performed and confirmed the elias portions of the service. I have reviewed and agree wi th the documentation in the provider note. documented in this enco unter Plan of Treatment + +------+--------+ + + | Name | Type | Priori | Associated Diagnoses | Order Schedule | | | | ty | | | + +------+--------+ + + | CBC ONLY | Lab | Urgent | | Lab Add Ons for 1 | | | | | | Occurrences starting | | | | | | 09/29/2012 until | | | | | | 09/29/2012 | + +------+--------+ + + documented as of this encounter Procedures + +--------+ + + + | Procedure Name | Priori | Date/Time | Associated Diagnosis | Comments | | | ty | | | | + +--------+ + + + | CELL COUNT, CSF | Urgent | 09/29/2012 | | Results for this | | | | 11:16 PM | | procedure are in the | | | | PDT | | results section. | + +--------+ + + + | MANUAL DIFF, CSF | Urgent | 09/29/2012 | | Results for this | | | | 11:16 PM | | procedure are in the | | | | PDT | | results section. | + +--------+ + + + | CELL COUNT DIFF, CSF | Urgent | 09/29/2012 | | Results for this | | | | 11:16 PM | | procedure are in the | | | | PDT | | results section. | + +--------+ + + + | MANUAL DIFF, CSF | Urgent | 09/29/2012 | | Results for this | | | | 10:25 PM | | procedure are in the | | | | PDT | | results section. | + +--------+ + + + | CELL COUNT, CSF | Urgent | 09/29/2012 | | Results for this | | | | 10:25 PM | | procedure are in the | | | | PDT | | results section. | + +--------+ + + + | GLUCOSE, CSF | Urgent | 09/29/2012 | | Results for this | | | | 10:25 PM | | procedure are in the | | | | PDT | | results section. | + +--------+ + + + | CULTURE, CSF BACTI | Urgent | 09/29/2012 | | Results for this | | | | 10:25 PM | | procedure are in the | | | | PDT | | results section. | + +--------+ + + + | PROTEIN, CSF | Urgent | 09/29/2012 | | Results for this | | | | 10:25 PM | | procedure are in the | | | | PDT | | results section. | + +--------+ + + + | SPECIMEN ROUTING | Routin | 09/29/2012 | | | | | e | 10:25 PM | | | | | | PDT | | | + +--------+ + + + | CELL COUNT DIFF, CSF | Urgent | 09/29/2012 | | Results for this | | | | 10:25 PM | | procedure are in the | | | | PDT | | results section. | + +--------+ + + + | GRAM SMEAR ONLY, | Urgent | 09/29/2012 | | Results for this | | STAT | | 10:25 PM | | procedure are in the | | | | PDT | | results section. | + +--------+ + + + | X-RAY HAND 3 VIEWS | Urgent | 09/29/2012 | | Results for this | | RIGHT | | 9:03 PM | | procedure are in the | | | | PDT | | results section. | + +--------+ + + + | CT ABDOMEN AND | Urgent | 09/29/2012 | | Results for this | | PELVIS W IV CONTRAST | | 8:14 PM | | procedure are in the | | | | PDT | | results section. | + +--------+ + + + | US ABDOMEN LIMITED | Urgent | 09/29/2012 | | Results for this | | | | 6:53 PM | | procedure are in the | | | | PDT | | results section. | + +--------+ + + + | CT HEAD WO CONTRAST | Urgent | 09/29/2012 | | Results for this | | | | 6:37 PM | | procedure are in the | | | | PDT | | results section. | + +--------+ + + + | CHEM 8 W/H&H,POC | Urgent | 09/29/2012 | | Results for this | | | | 4:20 PM | | procedure are in the | | | | PDT | | results section. | + +--------+ + + + | 12 LEAD ECG | Urgent | 09/29/2012 | | Results for this | | | | 4:07 PM | | procedure are in the | | | | PDT | | results section. | + +--------+ + + + | CBC AND AUTO DIFF | Urgent | 09/29/2012 | | Results for this | | | | 3:40 PM | | procedure are in the | | | | PDT | | results section. | + +--------+ + + + | RAINBOW HOLD TUBE - | Urgent | 09/29/2012 | | | | PURPLE TOP | | 3:40 PM | | | | | | PDT | | | + +--------+ + + + | RAINBOW HOLD TUBE - | Urgent | 09/29/2012 | | | | GREEN TOP | | 3:40 PM | | | | | | PDT | | | + +--------+ + + + | RAINBOW HOLD TUBE - | Urgent | 09/29/2012 | | | | BLUE TOP | | 3:40 PM | | | | | | PDT | | | + +--------+ + + + | RAINBOW HOLD, CORE | Urgent | 09/29/2012 | | Results for this | | PANEL | | 3:40 PM | | procedure are in the | | | | PDT | | results section. | + +--------+ + + + | CBC, WITH | Urgent | 09/29/2012 | | Results for this | | DIFFERENTIAL | | 3:40 PM | | procedure are in the | | | | PDT | | results section. | + +--------+ + + + | LIVER SET | Urgent | 09/29/2012 | | Results for this | | (AST,ALT,BILI | | 3:40 PM | | procedure are in the | | TOTAL,BILI | | PDT | | results section. | | DIRECT,ALK | | | | | | PHOS,ALB,PROT TOTAL) | | | | | + +--------+ + + + | TROPONIN I, PLASMA | Urgent | 09/29/2012 | | Results for this | | | | 3:40 PM | | procedure are in the | | | | PDT | | results section. | + +--------+ + + + | COAGULOPATHY PANEL | Urgent | 09/29/2012 | | Results for this | | (INR,APTT,FIBRINOGEN | | 3:40 PM | | procedure are in the | | ) | | PDT | | results section. | + +--------+ + + + | LIPASE, PLASMA | Urgent | 09/29/2012 | | Results for this | | | | 3:40 PM | | procedure are in the | | | | PDT | | results section. | + +--------+ + + + | CARDIOLOGY | | 09/29/2012 | | Results for this | | | | 12:00 AM | | procedure are in the | | | | PDT | | results section. | + +--------+ + + + documented in this encounter Results CELL COUNT, CSF (09/29/2012 11:16 PM PDT) + + + + + + | Component | Value | Ref Range | Performed | Pathologist | | | | | At | Signature | + + + + + + | CSF | Clear | Clear | [facility] | | | APPEARANCE | | | LABORATORY | | | | | | SERVICES, | | | | | | CORE | | + + + + + + | CSF COLOR | Colorless | Colorless | [facility] | | | | | | LABORATORY | | | | | | SERVICES, | | | | | | CORE | | + + + + + + | CSF TUBE | #4 | (none) | [facility] | | | NUMBER | | | LABORATORY | | | | | | SERVICES, | | | | | | CORE | | + + + + + + | CSF WBC | <1 | 0 - 5 /cu mm | [facility] | | | | | | LABORATORY | | | | | | SERVICES, | | | | | | CORE | | + + + + + + | CSF RBC | 1 (H) | <1 /cu mm | [facility] | | | | | | LABORATORY | | | | | | SERVICES, | | | | | | CORE | | + + + + + + + + | Specimen | + + | Cerebrospinal fluid | | - Cerebrospinal | | fluid | + + + + + + + | Performing | Address | City/State/Zipcode | Phone Number | | Organization | | | | + + + + + | [facility] | [address] | [place] [address] | | | SERVICES, CORE | [address] | | | + + + + + MANUAL DIFF, CSF (09/29/2012 11:16 PM PDT) + +--------+ + + + | Component | Value | Ref Range | Performed | Pathologist | | | | | At | Signature | + +--------+ + + + | NEUTROPHIL( | | 0 - 6 % | [facility] | | | CSF) | | | LABORATORY | | | | | | SERVICES, | | | | | | CORE | | + +--------+ + + + | LYMPHOCYTES | 83 (H) | 40 - 80 % | [facility] | | | (CSF) | | | LABORATORY | | | | | | SERVICES, | | | | | | CORE | | + +--------+ + + + | MONOCYTES(C | 18 | 15 - 45 % | [facility] | | | SF) | | | LABORATORY | | | | | | SERVICES, | | | | | | CORE | | + +--------+ + + + | TOTAL CELL | 40 | | [facility] | | | COUNTED,CSF | | | LABORATORY | | | | | | SERVICES, | | | | | | CORE | | + +--------+ + + + + + | Specimen | + + | Cerebrospinal fluid | | - Cerebrospinal | | fluid | + + + + + + + | Performing | Address | City/State/Zipcode | Phone Number | | Organization | | | | + + + + + | [facility] | [address] | [place] [address] | | | SERVICES, CORE | [address] | | | + + + + + MANUAL DIFF, CSF (09/29/2012 10:25 PM PDT) + +-------+ + + + | Component | Value | Ref Range | Performed | Pathologist | | | | | At | Signature | + +-------+ + + + | NEUTROPHIL( | | 0 - 6 % | [facility] | | | CSF) | | | LABORATORY | | | | | | SERVICES, | | | | | | CORE | | + +-------+ + + + | LYMPHOCYTES | 67 | 40 - 80 % | [facility] | | | (CSF) | | | LABORATORY | | | | | | SERVICES, | | | | | | CORE | | + +-------+ + + + | MONOCYTES(C | 33 | 15 - 45 % | [facility] | | | SF) | | | LABORATORY | | | | | | SERVICES, | | | | | | CORE | | + +-------+ + + + | TOTAL CELL | 61 | | [facility] | | | COUNTED,CSF | | | LABORATORY | | | | | | SERVICES, | | | | | | CORE | | + +-------+ + + + + + | Specimen | + + | Cerebrospinal fluid | | - Cerebrospinal | | fluid | + + + + + + + | Performing | Address | City/State/Zipcode | Phone Number | | Organization | | | | + + + + + | [facility] | [address] | [place] [address] | | | SERVICES, CORE | [address] | | | + + + + + CELL COUNT, CSF (09/29/2012 10:25 PM PDT) + + + + + + | Component | Value | Ref Range | Performed | Pathologist | | | | | At | Signature | + + + + + + | CSF | Clear | Clear | [facility] | | | APPEARANCE | | | LABORATORY | | | | | | SERVICES, | | | | | | CORE | | + + + + + + | CSF COLOR | Colorless | Colorless | [facility] | | | | | | LABORATORY | | | | | | SERVICES, | | | | | | CORE | | + + + + + + | CSF TUBE | #1 | (none) | [facility] | | | NUMBER | | | LABORATORY | | | | | | SERVICES, | | | | | | CORE | | + + + + + + | CSF WBC | 3 | 0 - 5 /cu mm | [facility] | | | | | | LABORATORY | | | | | | SERVICES, | | | | | | CORE | | + + + + + + | CSF RBC | 10 (H) | <1 /cu mm | [facility] | | | | | | LABORATORY | | | | | | SERVICES, | | | | | | CORE | | + + + + + + + + | Specimen | + + | Cerebrospinal fluid | | - Cerebrospinal | | fluid | + + + + + + + | Performing | Address | City/State/Zipcode | Phone Number | | Organization | | | | + + + + + | [facility] | [address] | [place] [address] | | | SERVICES, CORE | [address] | | | + + + + + PROTEIN, CSF (09/29/2012 10:25 PM PDT) + +-------+ + + + | Component | Value | Ref Range | Performed | Pathologist | | | | | At | Signature | + +-------+ + + + | TOTAL | 30 | 15 - 45 mg/dL | [facility] | | | PROTEIN CSF | | | LABORATORY | | | | | | SERVICES, | | | | | | CORE | | + +-------+ + + + + + | Specimen | + + | Cerebrospinal fluid | | - Cerebrospinal | | fluid | + + + + + + + | Performing | Address | City/State/Zipcode | Phone Number | | Organization | | | | + + + + + | [facility] | [address] | [place] [address] | | | MARC MORRISON | [address] | | | + + + + + CULTURE, CSF BACTI (09/29/2012 10:25 PM PDT) + + + + + + | Component | Value | Ref Range | Performed | Pathologist | | | | | At | Signature | + + + + + + | SPECIMEN | Cerebrospinal fluid | | [facility] | | | TYPE | | | [place] - | | | | | | [place] | | + + + + + + | SOURCE BODY | Cerebrospinal fluid | | [facility] - | | | SITE | | | [place] - | | | | | | [place] | | + + + + + + | CULTURE | C CSFSource: | | [facility] - | | | RESULT | Cerebrospinal fluid | | [place] - | | | | | | [place] | | | | Final CULTURE | | | | | | RESULT:No growth | | | | + + + + + + + + | Specimen | + + | Cerebrospinal fluid | | - Cerebrospinal | | fluid | + + + + + + + | Performing | Address | City/State/Zipcode | Phone Number | | Organization | | | | + + + + + | [facility] | [address] | [place] [address] | | | [place] | | | | + + + + + GLUCOSE, CSF (09/29/2012 10:25 PM PDT) + +-------+ + + + | Component | Value | Ref Range | Performed | Pathologist | | | | | At | Signature | + +-------+ + + + | GLUCOSE CSF | 68 | 40 - 70 mg/dL | [facility] | | | | | | LABORATORY | | | | | | SERVICES, | | | | | | CORE | | + +-------+ + + + + + | Specimen | + + | Cerebrospinal fluid | | - Cerebrospinal | | fluid | + + + + + + + | Performing | Address | City/State/Zipcode | Phone Number | | Organization | | | | + + + + + | [facility] | [address] | [place] [address] | | | SERVICES, CORE | [address] | | | + + + + + SPECIMEN ROUTING (09/29/2012 10:25 PM PDT) + + | Specimen | + + | | + + + + + + + | Performing | Address | City/State/Zipcode | Phone Number | | Organization | | | | + + + + + | [facility] | [address] | [place] [address] | | | [place]IN[place], LAB | [address] | | | | CENTRAL | | | | + + + + + GRAM SMEAR ONLY, STAT (09/29/2012 10:25 PM PDT) + + + + + + | Component | Value | Ref Range | Performed | Pathologist | | | | | At | Signature | + + + + + + | GRAM STAIN | No organisms | No organisms | [facility] | | | RESULT | seenComment: Few White | seen | LABORATORY | | | | blood cells present. | | SERVICES, | | | | | | CORE | | + + + + + + | SMEAR | Cytospin | (none) | [facility] | | | PREPARATION | | | LABORATORY | | | | | | SERVICES, | | | | | | CORE | | + + + + + + | SOURCE BODY | | | [facility] | | | SITE | | | LABORATORY | | | | | | SERVICES, | | | | | | CORE | | + + + + + + + + | Specimen | + + | Cerebrospinal fluid | + + + + + + + | Performing | Address | City/State/Zipcode | Phone Number | | Organization | | | | + + + + + | [facility] | [address] | [place] [address] | | | SERVICES, CORE | [address] | | | + + + + + X-RAY HAND 3 VIEWS RIGHT (09/29/2012 9:03 PM PDT) + + + + + + | Component | Value | Ref Range | Performed | Pathologist | | | | | At | Signature | + + + + + + | HAND 3 | STUDY: HAND 3 VIEWS | | | | | VIEWS RIGHT | RIGHT 09/29/12 21:03:00 | | | | | | COMPARISON: None. | | | | | | HISTORY: Fifth | | | | | | metacarpal trauma. | | | | | | FINDINGS: There is no | | | | | | fracture, malalignment | | | | | | or focal destruction. | | | | | | The jointspaces are | | | | | | maintained. The soft | | | | | | tissues are within | | | | | | normal limits. | | | | | | IMPRESSION: Normal right | | | | | | hand. Attending | | | | | | Radiologists: NORBERT | | | | | | STEFANIE SEVERINOuthor: | | | | | | NORBERT SEVERINO MD I | | | | | | have personally viewed | | | | | | this procedure/exam, | | | | | | reviewed this report,and | | | | | | made changes to it | | | | | | where appropriate. | | | | | | Final/Electronically | | | | | | lidia / NORBERT | | | | | | MAYCOL 09/30/2012 | | | | | | 8:44 AM | | | | + + + + + + + + | Specimen | + + | | + + + +---------+ + + | Performing | Address | City/State/Zipcode | Phone Number | | Organization | | | | + +---------+ + + | [facility] OF | | | | | RADIOLOGY | | | | + +---------+ + + CT ABDOMEN & PELVIS W IV CONTRAST (09/29/2012 8:14 PM PDT) + + + + + + | Component | Value | Ref Range | Performed | Pathologist | | | | | At | Signature | + + + + + + | CT ABDOMEN | CT ABDOMEN AND PELVIS | | | | | & PELVIS W | the 09/29/12 at | | | | | CONTRAST | approximately 2015 hrs: | | | | | | COMPARISON STUDIES: | | | | | | Right lower quadrant | | | | | | ultrasound same date. | | | | | | HISTORY: Right lower | | | | | | quadrant pain TECHNIQUE: | | | | | | After the uneventful | | | | | | administration of IV | | | | | | contrast 150 mLOmnipaque | | | | | | 320, and water as | | | | | | negative oral contrast, | | | | | | CT images wereacquired | | | | | | through the abdomen and | | | | | | pelvis and reviewed at 5 | | | | | | mmthickness and 2.5 mm | | | | | | spacing. Coronal and | | | | | | sagittal | | | | | | reformattedimages were | | | | | | also generated. ABDOMEN | | | | | | FINDINGS:Lung bases are | | | | | | unremarkable. Liver, | | | | | | gallbladder, spleen, | | | | | | adrenals, kidneys, | | | | | | pancreas, and | | | | | | upperabdominal bowel | | | | | | loops are unremarkable. | | | | | | No free fluid or free | | | | | | air isseen. No | | | | | | adenopathy is | | | | | | appreciated PELVIS | | | | | | FINDINGS:All loops in | | | | | | the pelvis appear | | | | | | unremarkable. No | | | | | | adenopathy | | | | | | isappreciated. | | | | | | Appendix is seen and | | | | | | is normal without | | | | | | localizedirritation. | | | | | | Bladder and prostate | | | | | | appear unremarkable. | | | | | | Osseousstructures are | | | | | | unremarkable. | | | | | | IMPRESSION:1.Normal CT | | | | | | of the abdomen and | | | | | | pelvis. Normal | | | | | | appendix visualized. | | | | | | Attending Radiologists: | | | | | | YSABEL SWEET MDAuthor: | | | | | | YSABEL SWEET MD I have | | | | | | personally viewed this | | | | | | procedure/exam, reviewed | | | | | | this report,and made | | | | | | changes to it where | | | | | | appropriate. | | | | | | Final/Electronically | | | | | | signed / YSABEL SWEET | | | | | | 09/30/2012 10:38 AM | | | | + + + + + + + + | Specimen | + + | | + + + +---------+ + + | Performing | Address | City/State/Zipcode | Phone Number | | Organization | | | | + +---------+ + + | [facility] DEPARTMENT OF | | | | | RADIOLOGY | | | | + +---------+ + + US ABDOMEN LIMITED (09/29/2012 6:53 PM PDT) + + + + + + | Component | Value | Ref Range | Performed | Pathologist | | | | | At | Signature | + + + + + + | US ABDOMEN | EXAM: ULTRASOUND | | | | | LIMITED | ABDOMEN LIMITED | | | | | | (APPENDIX) HISTORY: | | | | | | Evaluate for | | | | | | appendicitis COMPARISON: | | | | | | None TECHNIQUE: | | | | | | Targeted abdominal | | | | | | ultrasound was performed | | | | | | with gradedsonographic | | | | | | compression of the right | | | | | | lower quadrant. | | | | | | FINDINGS:The appendix is | | | | | | not identified. No | | | | | | inflammatory mass, | | | | | | abscess,peritoneal | | | | | | fluid, adenopathy, or | | | | | | thickened bowel is | | | | | | evident in rightlower | | | | | | quadrant. No tenderness | | | | | | is reported. Brief | | | | | | survey of right kidney | | | | | | shows no | | | | | | pelvocaliectasis. | | | | | | Brief surveyof | | | | | | gallbladder shows no | | | | | | stones, sludge, mural | | | | | | thickening, | | | | | | orpericholecystic fluid. | | | | | | IMPRESSION: 1. | | | | | | Because the appendix | | | | | | is not identified, this | | | | | | examination | | | | | | neitherdiagnoses nor | | | | | | excludes acute | | | | | | appendicitis. END | | | | | | IMPRESSION Attending | | | | | | Radiologists: YSABEL | | | | | | MICKI MDAuthor: | | | | | | JOCELYNE RAMOS MD I | | | | | | have personally viewed | | | | | | this procedure/exam, | | | | | | reviewed this report,and | | | | | | made changes to it | | | | | | where appropriate. | | | | | | Final/Electronically | | | | | | signed / YSABEL SWEET | | | | | | 09/30/2012 10:34 AM | | | | | | Pending final approval | | | | | | / JOCELYNE RAMOS | | | | | | 09/29/2012 19:18 PM | | | | | | Preliminary / | | | | | | JOCELYNE RAMOS | | | | | | 09/29/2012 19:16 PM | | | | + + + + + + + + | Specimen | + + | | + + + +---------+ + + | Performing | Address | City/State/Zipcode | Phone Number | | Organization | | | | + +---------+ + + | [facility] DEPARTMENT OF | | | | | RADIOLOGY | | | | + +---------+ + + CT HEAD WO CONTRAST (09/29/2012 6:37 PM PDT) + + + + + + | Component | Value | Ref Range | Performed | Pathologist | | | | | At | Signature | + + + + + + | CT HEAD WO | CT HEAD WITHOUT: | | | | | CONTRAST | 09/29/12 18:37:00 | | | | | | Comparison studies: | | | | | | None. Clinical history: | | | | | | Evaluate for | | | | | | subarachnoid hemorrhage | | | | | | TECHNIQUE: Axial CT | | | | | | images of the brain from | | | | | | skull base to | | | | | | vertex,including | | | | | | portions of the face and | | | | | | sinuses, were obtained | | | | | | withoutcontrast. | | | | | | Supplemental 2D | | | | | | reformatted images were | | | | | | generated andreviewed as | | | | | | needed.ADDITIONAL | | | | | | TECHNIQUE: None | | | | | | FINDINGS: Brain: No | | | | | | evidence of hemorrhage, | | | | | | hydrocephalus, tumor, | | | | | | vascularlesion, acute | | | | | | infarction, or | | | | | | intracranial | | | | | | injury.Severe | | | | | | diffusecerebellar | | | | | | parenchymal volume loss | | | | | | is noted. Soft tissues: | | | | | | Unremarkable Skull/Skull | | | | | | base: No fractures, | | | | | | deformities, or | | | | | | destructive | | | | | | lesions.Sella is normal. | | | | | | Mastoids and middle | | | | | | ears are clear. | | | | | | Face/Orbits: No | | | | | | fractures, deformities, | | | | | | or masses in the | | | | | | visualizedportions. | | | | | | Sinuses: Visualized | | | | | | portions are clear. | | | | | | Additional Comments: | | | | | | None IMPRESSION: No | | | | | | acute intracranial | | | | | | abnormality. Severe | | | | | | diffuse | | | | | | cerebellarparenchymal | | | | | | volume loss. Attending | | | | | | Radiologists: OLINDA | | | | | | STEFANIE POLLARDuthor: OLINDA | | | | | | MD LATRICE I have | | | | | | personally viewed this | | | | | | procedure/exam, reviewed | | | | | | this report,and made | | | | | | changes to it where | | | | | | appropriate. | | | | | | Final/Electronically | | | | | | signed / OLINDA POLLARD | | | | | | 09/29/2012 20:16 PM | | | | + + [...] | | | + +---------+ + + CHEM 8 W/H&H,POC (09/29/2012 4:20 PM PDT) + +---------+ + + + | Component | Value | Ref Range | Performed | Pathologist | | | | | At | Signature | + +---------+ + + + | SODIUM, POC | 139 | 134 - 143 | [facility] - | | | | | mmol/L | [facility] | | | | | | [facility] | | | | | | OF CARE | | | | | | TESTS | | + +---------+ + + + | POTASSIUM, | 3.4 (L) | 3.4 - 5.0 | [facility] - | | | POC | | mmol/L | [facility] | | | | | | [facility] | | | | | | OF CARE | | | | | | TESTS | | + +---------+ + + + | CHLORIDE, | 97.0 | 97 - 108 mmol/L | [facility] - | | | POC | | | [facility] | | | | | | [facility] | | | | | | OF CARE | | | | | | TESTS | | + +---------+ + + + | IONIZED | 1.20 | 1.14 - 1.32 | [facility] - | | | CALCIUM, | | mmol/L | [facility] | | | POC | | | [facility] | | | | | | OF CARE | | | | | | TESTS | | + +---------+ + + + | TCO2, POC | 33 | mmol/L | [facility] - | | | | | | [facility] | | | | | | [facility] | | | | | | OF CARE | | | | | | TESTS | | + +---------+ + + + | GLUCOSE, | 112 (H) | 60 - 99 mg/dL | [facility] - | | | POC | | | [facility] | | | | | | [facility] | | | | | | OF CARE | | | | | | TESTS | | + +---------+ + + + | BUN, POC | 24 (H) | 6 - 20 mg/dL | [facility] - | | | | | | [facility] | | | | | | [facility] | | | | | | OF CARE | | | | | | TESTS | | + +---------+ + + + | CREATININE, | 1.1 | 0.7 - 1.3 mg/dL | [facility] - | | | POC | | | [facility] | | | | | | [place] | | | | | | OF CARE | | | | | | TESTS | | + +---------+ + + + | HEMOGLOBIN, | 15.6 | 13.5 - 17.5 | [facility] - | | | POC | | g/dL | [facility] | | | | | | [place] | | | | | | OF CARE | | | | | | TESTS | | + +---------+ + + + | HEMATOCRIT, | 46 | 41.0 - 53.0 | [facility] - | | | POC | | %PCV | [facility] | | | | | | [facility] | | | | | | OF CARE | | | | | | TESTS | | + +---------+ + + + + + | Specimen | + + | | + + + + + + + | Performing | Address | City/State/Zipcode | Phone Number | | Organization | | | | + + + + + | [facility] | [address] | [place], [place] | | | [place] | [address] | [address] | | | TESTS | | | | + + + + + 12 LEAD ECG (09/29/2012 4:07 PM PDT) + + + + + + | Component | Value | Ref Range | Performed | Pathologist | | | | | At | Signature | + + + + + + | VENTRICULAR | 76 | BPM | [facility] | | | RATE | | | OF | | | | | | CARDIOLOGY | | + + + + + + | ATRIAL RATE | 76 | BPM | [facility] | | | | | | OF | | | | | | CARDIOLOGY | | + + + + + + | P-R | 122 | ms | [facility] | | | INTERVAL | | | OF | | | | | | CARDIOLOGY | | + + + + + + | QRS | 92 | ms | [facility] | | | DURATION | | | OF | | | | | | CARDIOLOGY | | + + + + + + | QT | 368 | ms | [facility] | | | | | | OF | | | | | | CARDIOLOGY | | + + + + + + | QTC | 414 | ms | [facility] | | | | | | OF | | | | | | CARDIOLOGY | | + + + + + + | P AXIS | 62 | degrees | [facility] | | | | | | OF | | | | | | CARDIOLOGY | | + + + + + + | R AXIS | 73 | degrees | [facility] | | | | | | OF | | | | | | CARDIOLOGY | | + + + + + + | T AXIS | 14 | degrees | [facility] | | | | | | OF | | | | | | CARDIOLOGY | | + + + + + + | EKG | Poor data quality, | | [facility] | | | DIAGNOSIS | interpretation may be | | OF | | | | adversely affectedNormal | | CARDIOLOGY | | | | sinus rhythmNonspecific | | | | | | T wave | | | | | | abnormalityAbnormal | | | | | | ECG"I have personally | | | | | | interpreted this report, | | | | | | either alone or with a | | | | | | trainee."Confirmed by | | | | | | AB OLVERA ([id number]) on | | | | | | 09/30/2012 3:08:55 PM | | | | + + + + + + + + | Specimen | + + | | + + + + + | Narrative | Performed At | + + + | Please click | [facility] | | on view image for the detailed interpretation from [employer] results. | CARDIOLOGY | + + + + + + + + | Performing | Address | City/State/Zipcode | Phone Number | | Organization | | | | + + + + + | [facility] | [address] | [place], [place] | | | CARDIOLOGY | [address] | [address] | | + + + + + CBC AND AUTO DIFF (09/29/2012 3:40 PM PDT) + +-------+ + + + | Component | Value | Ref Range | Performed | Pathologist | | | | | At | Signature | + +-------+ + + + | WBC COUNT | 9.4 | 4.4 - 11.0 K/cu | [facility] | | | | | mm | LABORATORY | | | | | | SERVICES, | | | | | | CORE | | + +-------+ + + + | RED CELL | 5.39 | 4.50 - 5.90 | [facility] | | | COUNT | | M/cu mm | LABORATORY | | | | | | SERVICES, | | | | | | CORE | | + +-------+ + + + | HEMOGLOBIN | 15.9 | 13.5 - 17.5 | [facility] | | | | | g/dL | LABORATORY | | | | | | SERVICES, | | | | | | CORE | | + +-------+ + + + | HEMATOCRIT | 47.2 | 41.0 - 53.0 % | [facility] | | | | | | LABORATORY | | | | | | SERVICES, | | | | | | CORE | | + +-------+ + + + | MCV | 87.6 | 80.0 - 96.0 fL | [facility] | | | | | | LABORATORY | | | | | | SERVICES, | | | | | | CORE | | + +-------+ + + + | MCHC | 33.6 | 33.4 - 35.5 | [facility] | | | | | g/dL | LABORATORY | | | | | | SERVICES, | | | | | | CORE | | + +-------+ + + + | RDW | 12.6 | 11.5 - 15.0 % | [facility] | | | | | | LABORATORY | | | | | | SERVICES, | | | | | | CORE | | + +-------+ + + + | PLATELET | 282 | 150 - 400 K/cu | [facility] | | | COUNT | | mm | LABORATORY | | | | | | SERVICES, | | | | | | CORE | | + +-------+ + + + | NEUTROPHIL | 70 | 50 - 70 % | [facility] | | | % | | | LABORATORY | | | | | | SERVICES, | | | | | | CORE | | + +-------+ + + + | LYMPHOCYTE | 23 | 18 - 42 % | [facility] | | | % | | | LABORATORY | | | | | | SERVICES, | | | | | | CORE | | + +-------+ + + + | MONOCYTE % | 7 | 2 - 8 % | [facility] | | | | | | LABORATORY | | | | | | SERVICES, | | | | | | CORE | | + +-------+ + + + | EOS % | 0 (L) | 1 - 3 % | [facility] | | | | | | LABORATORY | | | | | | SERVICES, | | | | | | CORE | | + +-------+ + + + | BASO % | 0 | 0 - 2 % | [facility] | | | | | | LABORATORY | | | | | | SERVICES, | | | | | | CORE | | + +-------+ + + + | NEUTROPHIL | 6.6 | 1.8 - 7.7 K/cu | [facility] | | | # | | mm | LABORATORY | | | | | | SERVICES, | | | | | | CORE | | + +-------+ + + + | LYMPHOCYTE | 2.2 | 1.0 - 4.8 K/cu | [facility] | | | # | | mm | LABORATORY | | | | | | SERVICES, | | | | | | CORE | | + +-------+ + + + | MONOCYTE # | 0.7 | 0.0 - 0.8 K/cu | [facility] | | | | | mm | LABORATORY | | | | | | SERVICES, | | | | | | CORE | | + +-------+ + + + | EOS # | 0.0 | 0.0 - 0.5 K/cu | [facility] | | | | | mm | LABORATORY | | | | | | SERVICES, | | | | | | CORE | | + +-------+ + + + | BASO # | 0.0 | 0.0 - 0.1 K/cu | [facility] | | | | | mm | LABORATORY | | | | | | SERVICES, | | | | | | CORE | | + +-------+ + + + + + | Specimen | + + | Blood - Blood | + + + + + + + | Performing | Address | City/State/Zipcode | Phone Number | | Organization | | | | + + + + + | [facility] | [address] | [place] [address] | | | SERVICES, CORE | [address] | | | + + + + + COAGULOPATHY PANEL (INR,APTT,FIBRINOGEN) (09/29/2012 3:40 PM PDT) + +-------+ + + + | Component | Value | Ref Range | Performed | Pathologist | | | | | At | Signature | + +-------+ + + + | INR | 1.02 | 0.90 - 1.20 INR | [facility] | | | | | | LABORATORY | | | | | | SERVICES, | | | | | | CORE | | + +-------+ + + + | APTT | 26.7 | 26.0 - 36.0 | [facility] | | | | | seconds | LABORATORY | | | | | | SERVICES, | | | | | | CORE | | + +-------+ + + + | FIBRINOGEN | 379 | 200 - 450 mg/dL | [facility] | | | LEVEL | | | LABORATORY | | | | | | SERVICES, | | | | | | CORE | | + +-------+ + + + + + | Specimen | + + | Blood - Blood | + + + + + | Narrative | Performed At | + + + | INR Therapeutic ranges for full anticoagulation: INR for | [facility] | | Venous Thromboembolism (2.0 - 3.0) INR INR for | LABORATORY | | most patients with mech. valves (2.5 - 3.5) INR APTT | [facility], CORE | | Therapeutic Range: (75 - 120) sec | | | Heparin levels of 0.35 - 0.7 U/mL | | + + + + + + + + | Performing | Address | City/State/Zipcode | Phone Number | | Organization | | | | + + + + + | [facility] | [address] | [place] [address] | | | SERVICES, CORE | [address] | | | + + + + + LIVER SET (AST,ALT,BILI TOTAL,BILI DIRECT,ALK PHOS,ALB,PROT TOTAL) (09/29/2012 3:40 PM PDT ) + +---------+ + + + | Component | Value | Ref Range | Performed | Pathologist | | | | | At | Signature | + +---------+ + + + | ALBUMIN, | 4.7 | 3.5 - 4.7 g/dL | [facility] | | | PLASMA | | | LABORATORY | | | (LAB) | | | SERVICES, | | | | | | CORE | | + +---------+ + + + | BILIRUBIN | 0.8 | 0.3 - 1.2 mg/dL | [facility] | | | TOTAL | | | LABORATORY | | | | | | SERVICES, | | | | | | CORE | | + +---------+ + + + | BILIRUBIN | 0.2 | 0.0 - 0.3 mg/dL | [facility] | | | DIRECT | | | LABORATORY | | | | | | SERVICES, | | | | | | CORE | | + +---------+ + + + | ALK PHOS | 35 (L) | 53 - 128 U/L | [facility] | | | | | | LABORATORY | | | | | | SERVICES, | | | | | | CORE | | + +---------+ + + + | AST(SGOT) | 18 | 15 - 41 U/L | [facility] | | | | | | LABORATORY | | | | | | SERVICES, | | | | | | CORE | | + +---------+ + + + | ALT (SGPT) | 28 | 12 - 60 U/L | [facility] | | | | | | LABORATORY | | | | | | SERVICES, | | | | | | CORE | | + +---------+ + + + | TOTAL | 8.5 (H) | 6.4 - 8.2 g/dL | [facility] | | | PROTEIN, | | | LABORATORY | | | PLASMA | | | SERVICES, | | | (LAB) | | | CORE | | + +---------+ + + + | AST CMNT | No Hemo | | [facility] | | | | | | LABORATORY | | | | | | SERVICES, | | | | | | CORE | | + +---------+ + + + | BILI T CMNT | No Hemo | | [facility] | | | | | | LABORATORY | | | | | | SERVICES, | | | | | | CORE | | + +---------+ + + + | BILI D CMNT | No Hemo | | [facility] | | | | | | LABORATORY | | | | | | SERVICES, | | | | | | CORE | | + +---------+ + + + + + | Specimen | + + | Blood - Blood | + + + + + + + | Performing | Address | City/State/Zipcode | Phone Number | | Organization | | | | + + + + + | [facility] | [address] | [place] [address] | | | SERVICES, CORE | [address] | | | + + + + + LIPASE, PLASMA (09/29/2012 3:40 PM PDT) + +---------+ + + + | Component | Value | Ref Range | Performed | Pathologist | | | | | At | Signature | + +---------+ + + + | LIPASE | 110 (L) | 152 - 353 U/L | [facility] | | | (LAB) | | | LABORATORY | | | | | | SERVICES, | | | | | | CORE | | + +---------+ + + + + + | Specimen | + + | Blood - Blood | + + + + + + + | Performing | Address | City/State/Zipcode | Phone Number | | Organization | | | | + + + + + | [facility] | [address] | [place] [address] | | | SERVICES, CORE | [address] | | | + + + + + TROPONIN I, PLASMA (09/29/2012 3:40 PM PDT) + +-------+ + + + | Component | Value | Ref Range | Performed | Pathologist | | | | | At | Signature | + +-------+ + + + | TROPONIN I | <0.02 | <0.80 ng/mL | [facility] | | | | | | LABORATORY | | | | | | SERVICES, | | | | | | CORE | | + +-------+ + + + + + | Specimen | + + | Blood - Blood | + + + + + + + | Performing | Address | City/State/Zipcode | Phone Number | | Organization | | | | + + + + + | [facility] | [address] | [place] [address] | | | MARC MORRISON | [address] | | | + + + + + RAINBOW HOLD TUBE - PURPLE TOP (09/29/2012 3:40 PM PDT) + + | Specimen | + + | Blood - Blood | + + + + + + + | Performing | Address | City/State/Zipcode | Phone Number | | Organization | | | | + + + + + | [facility] | [address] | [place] [address] | | | MARC MORRISON | [address] | | | + + + + + RAINBOW HOLD TUBE - GREEN TOP (09/29/2012 3:40 PM PDT) + + | Specimen | + + | Blood - Blood | + + + + + + + | Performing | Address | City/State/Zipcode | Phone Number | | Organization | | | | + + + + + | [facility] | [address] | [place] [address] | | | PRINCE, MARC | [address] | | | + + + + + RAINBOW HOLD TUBE - BLUE TOP (09/29/2012 3:40 PM PDT) + + | Specimen | + + | Blood - Blood | + + + + + + + | Performing | Address | City/State/Zipcode | Phone Number | | Organization | | | | + + + + + | [facility] | [address] | [place] [address] | | | PRINCE, MARC | [address] | | | + + + + + CARDIOLOGY (09/29/2012 12:00 AM PDT) + + + | Narrative | Performed At | + + + | | | | | | + + + + + | Procedure Note | + + | Jessy Sotelo - 10/02/2012 6:16 PM PDT | + + documented in this encounter Visit Diagnoses + + | Diagnosis | + + | Headache(784.0) - Primary Headache | + + | Abdominal pain | + + | Gastritis Unspecified gastritis and gastroduodenitis without mention of hemorrhage | + + documented in this encounter Administered Medications + +--------+ +--------+------+------+ | Medication Order | MAR | Action | Dose | Rate | Site | | | Action | Date | | | | + +--------+ +--------+------+------+ | acetaminophen (aka TYLENOL) | Given | 09/30/19 | 650 mg | | | | tablet 650 mg 650 mg, oral, | | 13 6:56 | | | | | ONCE, 1 dose, 09/29/12 at 1845 | | PM PDT | | | | + +--------+ +--------+------+------+ +---+---+ | | | +---+---+ + +-------+ +-------+---+---+ | aluminum-magnesium | Given | 09/30/19 | 30 mL | | | | hydroxide-simethicone (aka | | 13 6:56 | | | | | MAALOX; MYLANTA) 200-200-20 mg/5 | | PM PDT | | | | | mL suspension 30 mL 30 mL, oral, | | | | | | | ONCE, 1 dose, 09/29/12 at 1845 | | | | | | + +-------+ +-------+---+---+ +---+---+ | | | +---+---+ + +---------+ +-------+--------+---+ | diphenhydrAMINE (aka BENADRYL) | IV Push | 09/30/19 | 25 mg | mL/hr | | | injection 25 mg 25 mg, | | 13 6:56 | | | | | intravenous, ONCE, 1 dose, Sat | | PM PDT | | | | | 09/29/12 at 1845 | | | | | | + +---------+ +-------+--------+---+ +---+---+ | | | +---+---+ + +---------+ +--------+--------+---+ | iohexol (aka OMNIPAQUE) | New Bag | 09/30/19 | 150 mL | mL/hr | | | injection 150 mL 150 mL, | | 13 8:14 | | | | | intravenous, PROCEDURE ONCE, 1 | | PM PDT | | | | | dose, 09/29/12 at 2015 | | | | | | + +---------+ +--------+--------+---+ +---+---+ | | | +---+---+ + +---------+ + +--------+---+ | lactated ringers IV 1,000 mL, | New Bag | 09/30/19 | 1,000 mL | mL/hr | | | intravenous, ONCE, 1 dose, Sat | | 13 6:56 | | | | | 09/29/12 at 1845 | | PM PDT | | | | + +---------+ + +--------+---+ +---+---+ | | | +---+---+ + +-------+ +-------+---+---+ | lidocaine viscous (aka | Given | 09/30/19 | 30 mL | | | | XYLOCAINE VISCOUS) 2 % mucosal | | 13 6:56 | | | | | solution 30 mL 30 mL, oral, | | PM PDT | | | | | ONCE, 1 dose, 09/29/12 at 1845 | | | | | | + +-------+ +-------+---+---+ +---+---+ | | | +---+---+ + +-------+ +------+---+---+ | ondansetron ODT (aka SAMMY | Given | 09/30/19 | 4 mg | | | | ODT) tablet 4 mg 4 mg, oral, | | 13 6:56 | | | | | ONCE, 1 dose, 09/29/12 at 1615 | | PM PDT | | | | + +-------+ +------+---+---+ +---+---+ | | | +---+---+ + +---------+ +-------+--------+---+ | prochlorperazine (aka | IV Push | 09/30/19 | 10 mg | mL/hr | | | COMPAZINE) injection 10 mg 10 | | 13 6:56 | | | | | mg, intravenous, ONCE, 1 dose, | | PM PDT | | | | | 09/29/12 at 1845 | | | | | | + +---------+ +-------+--------+---+ +---+---+ | | | +---+---+ documented in this encounter
--- OUTSIDE RECORDS SUMMARY | ~2020-01-18 | XMS | Encounter Summary ---
Demographics + + + | Address | [address] | | | [place] [address] | + + + | Home Phone [...] + + | Author | [facility] | + + + | Organization | [facility] | + + + | Address [...] Team Providers + +------+ + | Care Supervisor Corduroy Cutting Name | Role | Phone | + +------+ + | Collin Rivera NP | PCP | | + +------+ + Encounter Details +--------+ + + + + | Date | Type | Department | Care Team | Description | +--------+ + + + + | 12/26/ | Document-Sc | UNKNOWN DEPARTMENT | Unknown . | | | 2015 | anned | [address] | | | | | | [address] | | | | | | [place], [place] | | | | | | [address] | | | +--------+ + + + [...] + + + | RADIOLOGY | | 12/26/2014 | | Results for this | | | | 12:00 AM | | procedure are in the | | | | PDT | | results section. | + +--------+ + + + documented in this encounter Results RADIOLOGY (12/26/2014 12:00 AM PDT) + + + | Narrative | Performed At | + + + | | | + + + documented in this encounter Visit Diagnoses Not on filedocumented in this encounter"
--- OUTSIDE RECORDS SUMMARY | ~2020-01-18 | XMS | Clinical Summary ---
Demographics + + + | Address | [address] | | | [place] [address] | + + + | Home Phone | | + + + | Preferred Language | Unknown | + + + | Marital Status | Single | + + + | Congregational Affiliation | CHR | + + + | Race | White | + + + | Ethnic Group | Not or | + + + Author + + + | Author | [facility] | + + + | Organization | [facility] | + + + | Address | [...] Team Providers + +------+ + | Care Chief Operator Hydroformer Name | Role | Phone | + +------+ + | Collin Rivera NP | PCP | | + +------+ + Source Comments [place] is fully live on both [facility] and [facility] InPatient.[facility] Allergies No Known Allergies Medications + + + +---------+------+------+-------+ | Medication | Sig | Dispensed | Refills | Star | End | Statu | | | | | | t | Date | s | | | | | | Date | | | + + + +---------+------+------+-------+ | citalopram 10 mg | Take 10 mg by mouth | | 0 | | | Activ | | Oral tablet | once daily. | | | | | e | + + + +---------+------+------+-------+ | SUMAtriptan 25 mg | Take 25 mg by mouth | | 0 | | | Activ | | Oral tablet | as needed. | | | | | e | | | Administer with | | | | | | | | fluids. A second | | | | | | | | dose may be | | | | | | | | administered in 2 | | | | | | | | hours if a | | | | | | | | satisfactory | | | | | | | | response has not | | | | | | | | been obtained. Max | | | | | | | | dose: 200 mg/day. | | | | | | + + + +---------+------+------+-------+ | omeprazole 40 mg | Take 1 Cap by mouth | 30 Cap | 0 | 05/0 | | Activ | | Oral capsule,delayed | once daily. | | | 5/20 | | e | | release(DR/EC) | | | | 13 | | | + + + +---------+------+------+-------+ | gabapentin 300 mg | Take 300 mg by mouth | | 0 | | | Activ | | oral capsule | three times daily. | | | | | e | + + + +---------+------+------+-------+ | promethazine 12.5 | Take 12.5 mg by | | 0 | | | Activ | | mg oral tablet | mouth four times | | | | | e | | | daily as needed for | | | | | | | | nausea/vomiting. | | | | | | + + + +---------+------+------+-------+ | | Take 1-2 tablets by | 5 | 0 | 07/2 | | Activ | | HYDROcodone-acetamin | mouth every four | tablet | | 8/20 | | e | | ophen (NORCO) 5-325 | hours as needed. Not | | | 15 | | | | mg oral tablet | to exceed 3250 mg | | | | | | | | of acetaminophen | | | | | | | | from all products | | | | | | | | per 24 hour period. | | | | | | + + + +---------+------+------+-------+ Active Problems Not on file Social History + +-------+ +--------+------+ | Tobacco [...] on file | | + + + Last Filed Vital Signs + + + [...] | | + + + + + Plan of Treatment + + +-------+ + | Health Maintenance | Due Date | Last | Comments | | | | Done | | + + +-------+ + | Influenza (Flu) | | | | | vaccination (#1) | 9 | | | + + +-------+ + | Pneumococcal | Aged Out | | No longer eligible based on patient's age | | vaccination | | | to complete this topic | + + +-------+ + Results Not on filefrom Last 3 Months Insurance + +--------+ +--------+-------+---------+--------+ | Payer | Benefi | Subscriber | Effect | Phone | Address | Type | | | t Plan | ID | guillaume | | | | | | / | | Dates | | | | | | Group | | | | | | + +--------+ +--------+-------+---------+--------+ | BUS INSPECTOR MEDICAID | BUS INSPECTOR | [id number] | 03/24/ | | | Medica | | | [place]AST[place] | | 2014-P | | | id | | | N [place] | | resent | | | | + +--------+ +--------+-------+---------+--------+ + +--------+ +--------+ + + | Guarantor Name | Accoun | Relation to | Date | Phone | Billing Address | | | t Type | Patient | of | | | | | | | | | | + +--------+ +--------+ + + | Mac Ybarra | Person | Self [birth year] | [address] | | | al/Fam | | 1986 | [phone] | [place] [address] | | | ava | | | 0 (Home) | | + +--------+ +--------+ + +
[~2020-01-18 11:25] MED LIST: ACETAMINOPHEN325 M1 PO; AUGMENTIN 875-1 EACH PO; BENTYL20 MG PO; BUTALB-ACETAMI1 EACH PO; CYMBALTA30 MG PO; DEPAKOTE125 MG PO; DOXYCYCLINE HY100 MG PO; DULOXETINE HCL30 MG PO; GABAPENTIN300 MG PO; GABAPENTIN400 MG PO; HYDROCODON-ACE1 EA10 PO; IBUPROFEN200 M1 PO; IBUPROFEN800 MG PO; MECLIZINE HCL25 MG PO; NORCO 5-325 TA1 EACH PO; ONDANSETRON ODT4 MG PO; PERCOCET 5-3251 EACH PO; PREDNISONE20 MG PO; PROMETHAZINE HC25 M1 PO; PROMETHAZINE12.5 M1 PO; TYLENOL325 MG PO; ZOFRAN ODT4 MG PO
--- OUTSIDE RECORDS SUMMARY | 2020-01-18 11:28 | XMS ---
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 Events No recent Security Events currently on file CRITERIA MET - Group Notification CARE PROVIDERS CAROLYN HAIR Physician Technical Assistant Current PHONE: [phone] ALEXEI JAMES Dentist: White Hat Hacker Current PHONE: [phone] ASIF PAK [facility]: Federally Qualified 05/29/2019-[facility] - PHONE: [phone] CHELSEA HURT Nurse Practitioner: 09/13/2019-Current PHONE: Unknown Inga Garcia Stunt Woman/Structural Steel Erection Supervisor 10/01/2019-Current PHONE: [phone] BERYL RAGLAND Stunt Woman/Structural Steel Erection Supervisor [facility] PHONE: Unknown CODY Huston [facility] Current PHONE: [phone] Marielle has no Care Guidelines for this patient. Serge VISIT COUNT (12 MO.) Ronaldo Machado YIMI Uribe TOTAL 2 NOTE: Visits indicate total known visits. ED/UCC VISIT TRACKING (12 MO.) 01/18/2020 11:26 [facility] TYPE: Emergency COMPLAINT: - SKIN PROBLEM 03/19/2019 18:43 [facility] [place] TYPE: Emergency DIAGNOSES: - SI - Mental disorder, not otherwise specified - Major depressive disorder, single episode, unspecified - Insomnia due to other mental disorder - Suicidal ideations INPATIENT VISIT TRACKING (12 MO.) 03/20/2019 19:57 [facility] [place] TYPE: Behavioral Health DIAGNOSES: - Major depressive disorder, single episode, unspecified - Major depressive disorder, recurrent, severe with psychotic s [email or web address]
[2020-01-18] MEDS ORDERED: PREGABALIN100 MG PO (12:04)
== END 2020-01-18 12:08 | disposition home or self-care (01) ==
LOC: ED 11:25
DX: R22.0 Localized swelling, mass and lump, head (principal)

== ENCOUNTER 2020-07-12 14:17 | Emergency (ER) | payer OTHER ==
[~2020-07-12] VITALS: Ht 167.6 cm; Wt 81.6 kg
[~2020-07-12 14:17] MED LIST changes: +PREGABALIN100 MG PO
--- OUTSIDE RECORDS SUMMARY | 2020-07-12 14:20 | XMS ---
PreManage Notification: СВЕТЛАНА KAUR Security Box Sorter Events No recent Security Events currently on file CRITERIA MET - Group Notification CARE PROVIDERS CAROLYN HAIR Physician Automobile Body Repairer Helper Current PHONE: [phone] ASIF PAK Clinic/Center: Federally Qualified 05/29/2019-[facility] ([facility]) HEALTH - PHONE: [phone] CHELSEA HURT Nurse Practitioner: 09/13/2019-Current PHONE: Unknown Inga Garcia Wine Cellar Worker/Explosives Handler 06/29/2020-Current PHONE: [phone] BERYL RAGLAND Wine Cellar Worker/Explosives Handler [facility] TEAM PHONE: Unknown CODY Huston [facility] Current PHONE: [phone] Marielle has no Care Guidelines for this patient. Serge VISIT COUNT (12 MO.) 2 [facility] TOTAL 2 NOTE: Visits indicate total known visits. ED/UCC VISIT TRACKING (12 MO.) 07/12/2020 14:17 [facility] [place] TYPE: Emergency COMPLAINT: - DIZZINESS, NAUSEA 01/18/2020 11:26 [facility] TYPE: Emergency COMPLAINT: - SKIN PROBLEM, MSE TO CLINIC DIAGNOSES: - Localized swelling, mass and lump, head INPATIENT VISIT TRACKING (12 MO.) No inpatient visits to display in this time frame [email or web address]
[2020-07-12] MEDS ORDERED: SULFAMETHOXAZO1 EAC1 PO (14:29)
--- NOTE | 2020-07-13 11:52 | EKG ---
[facility] [address] [place] [address] Signed Normal sinus rhythm with sinus arrhythmia Normal ECG When compared with ECG of 21-APR-2016 13:45, Nonspecific T wave abnormality no longer evident in Inferior leads Confirmed by RODRÍGUEZ SCANLON DO ([id number]) on 07/13/2020 11:52:16 AM Electronically Signed By: RODRÍGUEZ SCANLON DO 07/13/20 1152 PATIENT NAME: СВЕТЛАНА KAUR Electrocardiogram DATE OF : 81 PHYSICIAN: RODRÍGUEZ SCANLON DO REPORT #: [id number] REPORT IS CONFIDENTIAL AND NOT TO BE RELEASED WITHOUT AUTHORIZATION
== END 2020-07-12 17:55 | disposition home or self-care (01) ==
LOC: ED 14:17
DX: G40.909 Epilepsy, unspecified, not intractable, without status epilepticus (principal); Z20.822 Contact with and (suspected) exposure to COVID-19; F17.200 Nicotine dependence, unspecified, uncomplicated
CPT/HCPCS: 51798; 70450; 80053; 83735; 84484; 85025; 93005; 93010; 99284-25; C9803; J2405; J7030; U0003

== ENCOUNTER 2020-10-19 15:05 | Emergency (ER) | payer OTHER ==
[~2020-10-19] VITALS: Ht 167.6 cm; Wt 81.7 kg
[~2020-10-19 15:05] MED LIST changes: +SULFAMETHOXAZO1 EAC1 PO
--- OUTSIDE RECORDS SUMMARY | 2020-10-19 15:10 | XMS ---
PreManage Notification: СВЕТЛАНА KAUR Security Hand Endband Cutter Events No recent Security Events currently on file CRITERIA MET - Group Notification CARE PROVIDERS CAROLYN HAIR Physician Research Technician Current PHONE: [phone] LICHA TRAN Nurse Practitioner: 09/13/2019-Current PHONE: Unknown ASIF PAK/Center: Federally Qualified 05/29/2019-[facility] ([facility]) HEALTH - PHONE: [phone] Inga Garcia Special Education Coordinator/Barbering Teacher 09/26/2020-Current PHONE: [phone] BERYL RAGLAND Special Education Coordinator/Barbering Teacher Current [facility] TEAM PHONE: Unknown CODY Huston [facility] Current PHONE: [phone] Marielle has no Care Guidelines for this patient. Care History Medical/Surgical 07/17/2020 [facility] - PATIENT NOT ESTABLISHED WITH [facility] AND OR [facility]. CHW IS UNABLE TO CONTACT PATIENT. PLEASE REFER PATIENT TO WALK IN CLINIC FOR NON URGENT MEDICAL NEEDS. EMonica. VISIT COUNT (12 MO.) 3 [facility]. TOTAL 3 NOTE: Visits indicate total known visits. ED/UCC VISIT TRACKING (12 MO.) 10/19/2020 15:06 [facility] TYPE: Emergency COMPLAINT: - HEAD INJURY 07/12/2020 14:17 [facility] TYPE: Emergency COMPLAINT: - DIZZINESS, NAUSEA DIAGNOSES: - Epilepsy, unspecified, not intractable, without status epilepticus - Nicotine dependence, unspecified, uncomplicated - Dizziness and giddiness 01/18/2020 11:26 [facility] [place] TYPE: Emergency COMPLAINT: - SKIN PROBLEM, MSE TO CLINIC DIAGNOSES: - Localized swelling, mass and lump, head INPATIENT VISIT TRACKING (12 MO.) No inpatient visits to display in this time frame [id number]
== END 2020-10-19 17:42 | disposition home or self-care (01) ==
LOC: ED 15:05
DX: S60.222A Contusion of left hand, initial encounter (principal); S00.81XA Abrasion of other part of head, initial encounter; G40.909 Epilepsy, unspecified, not intractable, without status epilepticus; W01.198A Fall on same level from slipping, tripping and stumbling with subsequent striking against other object, initial encounter; F17.200 Nicotine dependence, unspecified, uncomplicated
CPT/HCPCS: 70450; 72125; 73130; 80053; 85025; 99284-25; 99406

== ENCOUNTER 2021-04-04 13:01 | Emergency (ER) | payer OTHER ==
[~2021-04-04] VITALS: Ht 167.6 cm; Wt 77.1 kg
--- OUTSIDE RECORDS SUMMARY | 2021-04-04 13:08 | XMS ---
PreManage Notification: СВЕТЛАНА KAUR Security Postdoctoral Research Fellow Events No recent Security Events currently on file CRITERIA MET - Group Notification CARE PROVIDERS CAROLYN HAIR Physician Hospice/Home Health Aide Current PHONE: [phone] Ivet Bunn Store Associate/Pot Fisher 02/26/2021-Current PHONE: [phone] LICHA TRAN Nurse Practitioner: 09/13/2019-Current PHONE: Unknown ASIF PAK [facility]/Center: Federally Qualified 05/29/2019-[facility] ([facility] HEALTH - PHONE: [phone] BERYL RAGLAND Store Associate/Pot Fisher [facility] TEAM PHONE: Unknown CODY Huston [facility] Current PHONE: [phone] Marielle has no Care Guidelines for this patient. Care History Medical/Surgical 07/17/2020 [facility] - PATIENT NOT ESTABLISHED WITH [facility] AND OR [facility]. CHW IS UNABLE TO CONTACT PATIENT. PLEASE REFER PATIENT TO WALK IN CLINIC FOR NON URGENT MEDICAL NEEDS. E.D. VISIT COUNT (12 MO.) 3 [facility]. TOTAL 3 NOTE: Visits indicate total known visits. ED/UCC VISIT TRACKING (12 MO.) 04/04/2021 13:02 [facility] TYPE: Emergency COMPLAINT: - DIZZINESS 10/19/2020 15:06 [facility] TYPE: Emergency COMPLAINT: - HEAD INJURY DIAGNOSES: - Abrasion of other part of head, initial encounter - Nicotine dependence, unspecified, uncomplicated - Fall on same level from slipping, tripping and stumbling with subsequent striking against other object, initial encounter - Epilepsy, unspecified, not intractable, without status epilepticus - Headache, unspecified - Contusion of left hand, initial encounter 07/12/2020 14:[address] [facility] [place] TYPE: Emergency COMPLAINT: - DIZZINESS, NAUSEA DIAGNOSES: - Epilepsy, unspecified, not intractable, without status epilepticus - Nicotine dependence, unspecified, uncomplicated - Dizziness and giddiness INPATIENT VISIT TRACKING (12 MO.) No inpatient visits to display in this time frame [id number]
[2021-04-04] MEDS ORDERED: ONDANSETRON ODT4 MG PO (19:12)
[2021-04-04] MEDS ORDERED: MECLIZINE HCL25 MG PO (19:12)
[2021-04-04] MEDS ORDERED: PEPCID20 MG PO (19:12)
--- NOTE | 2021-04-05 13:41 | EKG ---
[facility] [address] [place], [place] [address] Signed Normal sinus rhythm with sinus arrhythmia Normal ECG When compared with ECG of 12-JUL-2020 15:14, No significant change was found Confirmed by ALE BENITO MD ([id number]) on 04/05/2021 1:41:11 PM Electronically Signed By: ALE BENITO MD 04/05/21 1341 PATIENT NAME: СВЕТЛАНА KAURPATT Electrocardiogram DATE OF : 81 PHYSICIAN: ALE BENITO MD REPORT #: [id number] REPORT IS CONFIDENTIAL AND NOT TO BE RELEASED WITHOUT AUTHORIZATION
== END 2021-04-04 19:28 | disposition home or self-care (01) ==
LOC: ED 13:01
DX: G40.909 Epilepsy, unspecified, not intractable, without status epilepticus (principal); R42 Dizziness and giddiness; R10.12 Left upper quadrant pain; Z20.822 Contact with and (suspected) exposure to COVID-19; F17.200 Nicotine dependence, unspecified, uncomplicated
CPT/HCPCS: 70450; 71045; 80053; 81001; 83735; 84484; 85025; 93005; 93010; 96374; 96375; 96376; 99284-25; A9270; C9803; J1200; J1885; J2270; J2405; J2765; U0003

== ENCOUNTER 2022-01-19 12:18 | Emergency (ER) | payer OTHER ==
[~2022-01-19] VITALS: Ht 167.6 cm; Wt 72.4 kg
[~2022-01-19 12:18] MED LIST changes: +HYDROCODON-ACE1 EA11 PO; +PEPCID20 MG PO; +REGLAN10 MG PO
--- OUTSIDE RECORDS SUMMARY | 2022-01-19 12:20 | XMS ---
PreManage Notification: СВЕТЛАНА KAUR Security Leaf Sucker Operator Events No recent Security Events currently on file CRITERIA MET - Group Notification - [facility] - Has Care Guidelines - [facility] - 2 Visits in 30 Days CARE PROVIDERS CAROLYN HAIR Meatman Current PHONE: [phone] Ivet Bunn Bilingual Nanny/Geoscience Laboratory Technician 09/26/2021-Current PHONE: [phone] KAE SAUNDERS Family Medicine 04/12/2021-Current PHONE: Unknown ASIF PAK [facility]/Center: Federally Qualified 05/29/2019-[facility] ([facility]) HEALTH - PHONE: [phone] BERYL RAGLAND Bilingual Nanny/Geoscience Laboratory Technician Current [facility] TEAM PHONE: Unknown CODY Huston [facility] Current PHONE: Unknown Marielle has no Care Guidelines for this patient. Care History Medical/Surgical 04/12/2021 [facility] - Patient is currently established with [facility]. If patient is seen in the ED during business hours. Please contact CHWs at [facility]. Care Recommendation: If this patient has had 5 or more Emergency Department visits in the last 12 months.\T\nbsp; Patient will require education on the scope and purpose of the ED as an acute care provider not a Primary Care Provider and should not be utilized for chronic conditions.\T\nbsp; These are guidelines and the provider should exercise clinical judgment when providing care. 04/12/2021 [facility] Follow up visit with Dr. Saunders on 04/12/2021. Patient trying to get appointment with Neuro, but they are backed up at this time. E.D. VISIT COUNT (12 MO.) [address] [facility] TOTAL 4 NOTE: Visits indicate total known visits. ED/UCC VISIT TRACKING (12 MO.) 01/19/2022 12:18 [facility] TYPE: Emergency COMPLAINT: - DIFFICULTY BREATHING 01/18/2022 11:44 [facility] TYPE: Emergency COMPLAINT: - DIZZINESS/NAUSEA 04/09/2021 08:55 [facility] [place] TYPE: Emergency COMPLAINT: - VOMITING DEHYDRATION DIFFICULTY BREATHING DIAGNOSES: - Peptic ulcer, site unspecified, unspecified as acute or chronic, without hemorrhage or perforation - Nicotine dependence, unspecified, uncomplicated - Upper abdominal pain, unspecified - Other terminal supervisor (current) drug therapy 04/04/2021 13:02 [facility] [place] TYPE: Emergency COMPLAINT: - DIZZINESS DIAGNOSES: - Left upper quadrant pain - Dizziness and giddiness - Epilepsy, unspecified, not intractable, without status epilepticus - Headache, unspecified - Nicotine dependence, unspecified, uncomplicated INPATIENT VISIT TRACKING (12 MO.) No inpatient visits to display in this time frame [id number]
== END 2022-01-19 12:31 | disposition left against medical advice (07) ==
LOC: ED 12:18
DX: R51.9 Headache, unspecified (principal); F17.200 Nicotine dependence, unspecified, uncomplicated
CPT/HCPCS: 80053; 81001; 85025; 87502; 99284-25; U0003